=== PATIENT | female | born 1940 | race Two or more races ===

== ENCOUNTER 2021-09-13 11:39 | Emergency (ER) | payer MEDICARE ==
[~2021-09-13] VITALS: Ht 152.4 cm; Wt 90.7 kg
--- NOTE | 2021-09-13 11:54 | NUR ---
BIBA RA60 FOR BACK/SHOULDER PAIN AND L ARM WEAKNESS S/P CORTISONE INJECTION 4 DAYS AGO. PER EMS, O2 SAT 86% ON RA, GIVEN 4L NOW 96-97%.
--- NOTE | 2021-09-13 12:02 | NUR ---
PT REFUSING ALL TREATMENT. REFSUES VITALS, OXYGEN. STATES WANTS TO GO TO [facility]. ANGEL WESTON CALLED [phone] AND NOTIFIED.
--- NOTE | 2021-09-13 12:13 | NUR ---
PT STATES SHE WISHES TO BE TREATED HERE NOW. PLACED ON NC 5L POX 98%. HEAD OF BED ADJUSTED FOR COMFORT. WILL CONTINUE TO MONITOR.
[2021-09-13] MEDS ORDERED: ONDANSETRON HCL/PF 4 MG/2 ML VIAL IVP ONE (12:30)
[2021-09-13] MEDS ORDERED: MORPHINE SULFATE INJ 2 MG/ML DISP.SYRIN IV ONE (12:30)
--- NOTE | 2021-09-13 12:49 | NUR ---
ANGEL WESTON IN WAITING ROOM [phone]
--- NOTE | 2021-09-13 12:50 | NUR ---
PER SON, DO NOT TAKE PT TO CT IMAGING. X RAY IS OK.
[2021-09-13 12:59] LABS: BASOPHILS # (AUTO) 0.1 K/uL (0.0-0.2); BASOPHILS % (AUTO) 0.6 % (0.0-2.0); HEMATOCRIT 37 % (33-45); HEMOGLOBIN 11.6 g/dL (11.5-14.8); LYMPHOCYTES # (AUTO) 0.6 K/uL (0.8-4.8); LYMPHOCYTES % (AUTO) 6.1 % (20.0-44.0); MEAN CORPUSCULAR HGB CONC 31 g/dl (31.0-36.0); MEAN CORPUSCULAR VOLUME 80 fL (82-100); MONOCYTES # (AUTO) 0.8 K/uL (0.1-1.30); MONOCYTES % (AUTO) 8.5 % (2.0-12.0); NEUTROPHILS # (AUTO) 7.6 K/uL (1.8-8.9); NEUTROPHILS % (AUTO) 80.8 % (43.0-81.0); PLATELET COUNT (AUTO) 333 K/uL (150-450); RED BLOOD CELL COUNT(AUTO) 4.65 MIL/uL (4.0-5.2); WHITE BLOOD COUNT (AUTO) 9.4 K/uL (4.3-11.0)
[2021-09-13 13:59] LABS: CARBON DIOXIDE 30 mmol/L (21-32); CHLORIDE 105 mmol/L (98-107); CREATININE 1.9 mg/dL (0.6-1.3); GLUCOSE 175 mg/dL (74-106); POTASSIUM 4.5 mmol/L (3.5-5.1); SODIUM SERUM 143 mmol/L (136-145); UREA NITROGEN, BLOOD 28 mg/dL (7-18)
--- NOTE | 2021-09-13 14:36 | NUR ---
ASSISTED PT WITH AMBULATING TO RESTROOM AND RETURNING TO BED. VS REMAINED STABLE. COMFORT MEASURES IN PLACE.
--- NOTE | 2021-09-13 14:39 | NUR ---
URINE SAMPLE OBTAINED AND SENT TO LAB
[2021-09-13 15:26] LABS: BILIRUBIN,URINE NEGATIVE (NEGATIVE); COLOR,URINE YELLOW (YELLOW); LEUKOCYTE ESTERASE ,URINE TRACE (NEGATIVE); NITRITE, URINE NEGATIVE (NEGATIVE); PROTEIN,URINE 30 mg/dl (NEGATIVE); UGLUCOSE NEGATIVE (NEGATIVE); UROBILINOGEN,URINE 0.2 EU/dL (0.2)
[2021-09-13] MEDS ORDERED: AMOX-430 PO (16:00)
[2021-09-13 16:01] LABS: BACTERIA,URINE Few /HPF (None Seen); RBC,URINE 0-2 /HPF (0-2); SQUAMOUS EPITHELIAL CELL,UR Moderate /HPF (None Seen); WBC,URINE 20-30 /HPF (0-3); YEAST,URINE Few /HPF (None Seen)
--- NOTE | 2021-09-13 16:21 | NUR ---
Patient does not wish to proceed with medical care recommended by Dr. Berger. Patient given information related to possible complications, up to and including , which could occur as a result of leaving the hospital at this time. Patient verbalizes understanding of risks involved due to leaving against medical advice. Patient has signed AMA form.
--- NOTE | 2021-09-13 16:22 | NUR ---
PT SON ENRICO CALLED TO PICK PT UP.
--- NOTE | 2021-09-13 17:47 | NUR ---
PT SON HERE TO SPORTS COMPLEX ATTENDANT PT
[2021-09-13 17:48] VITALS: BP 138/84
== END 2021-09-13 17:49 | disposition left against medical advice (07) ==
LOC: ER 11:43
DX: J18.8 Other pneumonia, unspecified organism (principal); I10 Essential (primary) hypertension; F32.9 Major depressive disorder, single episode, unspecified; F41.9 Anxiety disorder, unspecified; Z88.6 Allergy status to analgesic agent; Z88.8 Allergy status to other drugs, medicaments and biological substances; Z79.899 Other long term (current) drug therapy
CPT/HCPCS: 36415; 71045-TC; 73030-TC; 80048-TC; 81001; 84484-TC; 85025-TC

== ENCOUNTER 2022-04-19 20:49 | Inpatient (IN) | payer MEDICARE, OTHER ==
[~2022-04-19] VITALS: Ht 152.4 cm; Wt 79.4 kg
[2022-04-19] MEDS: METOPROLOL SUCCINATE 50 MG TAB.SR.24H PO SCH (00:38)
[2022-04-19] MEDS: ASPIRIN 81 MG TAB.CHEW PO SCH (00:43)
[~2022-04-19 20:49] MED LIST: AMOX-430 PO
--- NOTE | 2022-04-19 20:55 | NUR ---
BIBRA60 FROM [facility] C/O AMS NOTED AROUND 4PM, UPON TRIAGE RA 02 NOTED AT 83%. PATIENT IN GOWN IN BED 08 ON MONITOR AND POX, AWAITING MD GERMAN.
--- NOTE | 2022-04-19 20:58 | NUR ---
BLOOD COLLECTED AND SENT TO LAB
--- NOTE | 2022-04-19 21:01 | NUR ---
PT GOING TO [facility]
[2022-04-19] MEDS ORDERED: IOHEXOL-350 100 ML VIAL IV ONE (21:03)
[2022-04-19] MEDS ORDERED: IV NS 0.9% 250 ML IV ONE (21:03)
--- NOTE | 2022-04-19 21:13 | NUR ---
BACK FROM CT
[2022-04-19 21:18] LABS: BASOPHILS % (AUTO) 0.2 % (0.0-2.0); HEMATOCRIT 44 % (33-45); HEMOGLOBIN 12.3 g/dL (11.5-14.8); LYMPHOCYTES # (AUTO) 0.6 K/uL (0.8-4.8); MEAN CORPUSCULAR HGB CONC 28 g/dl (31.0-36.0); MEAN CORPUSCULAR VOLUME 98 fL (82-100); MONOCYTES # (AUTO) 0.1 K/uL (0.1-1.30); MONOCYTES % (AUTO) 3.5 % (2.0-12.0); NEUTROPHILS # (AUTO) 1.5 K/uL (1.8-8.9); NEUTROPHILS % (AUTO) 69.3 % (43.0-81.0); PLATELET COUNT (AUTO) 116 K/uL (150-450); RED BLOOD CELL COUNT(AUTO) 4.47 MIL/uL (4.0-5.2); WHITE BLOOD COUNT (AUTO) 2.2 K/uL (4.3-11.0)
--- NOTE | 2022-04-19 21:18 | NUR ---
BS 281
--- NOTE | 2022-04-19 21:18 | NUR ---
COVID SWAB COLLECTED
--- NOTE | 2022-04-19 21:23 | NUR ---
NEUROLOGIST DR. KYLE ON THE TELEPAD WITH PATIENT FOR EVALUATION.
--- NOTE | 2022-04-19 21:36 | NUR ---
urine collected and sent to lab
--- NOTE | 2022-04-19 21:40 | NUR ---
DR MAXWELL ON THE PHONE WITH DR AREVALO, NEURO
[2022-04-19 21:41] LABS: CALCIUM, SERUM 8.9 mg/dL (8.5-10.1); CARBON DIOXIDE 33 mmol/L (21-32); CHLORIDE 109 mmol/L (98-107); CREATININE 2.2 mg/dL (0.6-1.3); GLUCOSE 333 mg/dL (74-106); POTASSIUM 4.6 mmol/L (3.5-5.1); SODIUM SERUM 147 mmol/L (136-145); UREA NITROGEN, BLOOD 36 mg/dL (7-18)
--- NOTE | 2022-04-19 21:52 | NUR ---
TROPONIN 63
[2022-04-19] MEDS ORDERED: MAG HYDROX/AL HYDROX/SIMETH 30 ML UDC PO PRN (23:00)
[2022-04-19] MEDS ORDERED: FUROSEMIDE 40 MG/4 ML VIAL IV ONE (23:00)
[2022-04-19] MEDS ORDERED: ACETAMINOPHEN 325 MG TABLET PO PRN (23:00)
[2022-04-19] MEDS ORDERED: ZOLPIDEM TARTRATE 5 MG TABLET PO PRN (23:00)
[2022-04-19] MEDS ORDERED: MAGNESIUM HYDROXIDE 30 ML UDC PO PRN (23:00)
[2022-04-19] MEDS ORDERED: Z GUARD REMEDY 4 OZ OINT TP PRN (23:00)
--- NOTE | 2022-04-19 23:47 | NUR ---
16FR CHAIREZ CATHETER INSERTED PER MD SALAS ORDERS. PT TOLERATED WELL.
[2022-04-19 23:48] LABS: COLOR,URINE YELLOW (YELLOW); PH,URINE 8.5 (5.0-8.0)
[2022-04-19 23:49] LABS: BILIRUBIN,URINE NEGATIVE (NEGATIVE); LEUKOCYTE ESTERASE ,URINE LARGE (NEGATIVE); NITRITE, URINE NEGATIVE (NEGATIVE); PROTEIN,URINE 2+ mg/dl (NEGATIVE); UGLUCOSE NEGATIVE (NEGATIVE); UROBILINOGEN,URINE 0.2 EU/dL (0.2)
[2022-04-19 23:54] LABS: BACTERIA,URINE Many /HPF (None Seen); RBC,URINE TOO NUMEROUS TO COUN /HPF (0-2); SQUAMOUS EPITHELIAL CELL,UR Few /HPF (None Seen); WBC,URINE TOO NUMEROUS TO COUN /HPF (0-3)
[2022-04-20 00:02] LABS: BAND % (MANUAL) 2 % (0.0-5.0); MONOCYTES % (MANUAL) 4 % (0-11.0)
[2022-04-20 00:03] LABS: EOSINOPHILS % (MANUAL) 1 % (0-4); LYMPHOCYTES % (MANUAL) 30 % (16-48); NEUTROPHILS % (MANUAL) 63 (42-76)
--- NOTE | 2022-04-20 00:30 | NUR ---
PT SLEEPING COMOFORTABLY. ORIENTED X1N TO NAME, FOLLOWS BASIC COMMANDS AND MOVES PURPOSELY. V/S REMAIN WNL.
[2022-04-20] MEDS ORDERED: CEFTRIAXONE 1GM BAG (ER ONLY) 50 ML IV ONE (00:32)
[2022-04-20] MEDS ORDERED: FUROSEMIDE 40 MG/4 ML VIAL ONE (00:33)
[2022-04-20] MEDS: CEFTRIAXONE 1 G in IV D5W 50 ML IV SCH ×2 (00:38→21:11)
[2022-04-20] MEDS ORDERED: ASPIRIN 81 MG TAB.CHEW ONE (00:41)
--- NOTE | 2022-04-20 04:55 | NUR ---
report given to gwyn
[2022-04-20 05:20] LABS: BASOPHILS % (AUTO) 0.3 % (0.0-2.0); EOSINOPHILS % (AUTO) 2.8 % (0.0-6.0); HEMATOCRIT 38 % (33-45); HEMOGLOBIN 11.8 g/dL (11.5-14.8); LYMPHOCYTES # (AUTO) 0.5 K/uL (0.8-4.8); MEAN CORPUSCULAR HGB CONC 31 g/dl (31.0-36.0); MEAN CORPUSCULAR VOLUME 88 fL (82-100); MONOCYTES % (AUTO) 2.9 % (2.0-12.0); PLATELET COUNT (AUTO) 111 K/uL (150-450)
--- NOTE | 2022-04-20 05:23 | NUR ---
pt transported to room 117-1 on hand mixer per acls in stable condition
--- NOTE | 2022-04-20 05:25 | NUR ---
0525 Admitted from ER 81 year old female via [facility] with Dx of Acute CHF Exacerbation. Patient is very obtunded, responds only to painful stimuli. Breathing even and unlabored. No signs of distress noted. On O2 at 4liter via NC satting 95-97%. Connected to environmental monitoring technician. NSR in the 90s. Vital signs taken and recorded. Admission care rendered and skin assessment done. Noted with multiple bruising on bilateral upper extremities. Mcintyre catheter intact and large amount of clear yellow urine. Complete bed bath provided. HOB elevated for maximum oxygenation. Turned and repositioned. Call light placed within reach..
[2022-04-20 05:29] LABS: WHITE BLOOD COUNT (AUTO) 1.6 K/uL (4.3-11.0)
--- NOTE | 2022-04-20 05:30 | NUR ---
RN NOTE RECEIVED CRITICAL FROM LAB WBC 1.6
[2022-04-20 05:31] LABS: BAND % (MANUAL) 2 % (0.0-5.0); LYMPHOCYTES % (MANUAL) 32 % (16-48)
[2022-04-20 05:32] LABS: EOSINOPHILS % (MANUAL) 3 % (0-4); MONOCYTES % (MANUAL) 3 % (0-11.0); NEUTROPHILS % (MANUAL) 60 (42-76)
[2022-04-20 05:36] LABS: CALCIUM, SERUM 8.9 mg/dL (8.5-10.1); CARBON DIOXIDE 37 mmol/L (21-32); CHLORIDE 108 mmol/L (98-107); CREATININE 2.2 mg/dL (0.6-1.3); GLUCOSE 248 mg/dL (74-106); MAGNESIUM 2.4 mg/dL (1.8-2.4); PHOSPHORUS 4.6 mg/dL (2.5-4.9); POTASSIUM 3.6 mmol/L (3.5-5.1); SODIUM SERUM 150 mmol/L (136-145); UREA NITROGEN, BLOOD 35 mg/dL (7-18)
--- NOTE | 2022-04-20 05:45 | NUR ---
0545 Critical troponin result 51 not reported, trending down.
[2022-04-20 05:49] LABS: CHOLESTEROL 159 mg/dL (<200); HDL CHOLESTEROL 52 mg/dL (40-60); LDL 74 mg/dL (0-99); THYROID STIMULATING HORMONE 1.848 uIU/mL (0.358-3.74); TRIGLYCERIDES 251 mg/dL (30-150)
--- NOTE | 2022-04-20 05:55 | NUR ---
0555 SERGIO Gutiérrez made aware of critical troponin 51 and procalcitonin 2.79 results with no order made.
[2022-04-20] MEDS ORDERED: DEXTROSE 50%-WATER 50 ML DISP.SYRIN IV PRN (06:00)
--- NOTE | 2022-04-20 07:42 | NUR ---
VERONICA RN NOTE PATIENT IN BED, SLEEPING BUT AROUSABLE BY TACTILE STIMULI, ON 5L NC SATURATION 95% AT THIS TIME, ON TELE MONITOR SR HR 99, RT AC LT AC HL IN PLACE , BED IN LOWEST AND LOCKED POSITION , NO SOB NOTED AT THIS TIME, SAFETY MEASURE PROVIDED, BED ALARM IN PLACE, WILL CONT TO MONITOR CLOSELY
[2022-04-20] MEDS ORDERED: PARO10TA4 PO (08:34)
[2022-04-20] MEDS ORDERED: METO-357 PO (08:34)
[2022-04-20] MEDS ORDERED: LATA2.5D15 EACHEYE (08:34)
[2022-04-20] MEDS ORDERED: TRAM50TA2 PO (08:34)
[2022-04-20] MEDS ORDERED: BRIM5DRO11 EACHEYE (08:34)
[2022-04-20] MEDS ORDERED: ALPR0.5T8 PO (08:34)
[2022-04-20] MEDS ORDERED: PREG50CA PO (08:34)
[2022-04-20] MEDS ORDERED: ERGO500093 PO (08:34)
[2022-04-20] MEDS ORDERED: SENN-175 PO (08:34)
[2022-04-20] MEDS ORDERED: AMLO5TAB4 PO (08:34)
[2022-04-20] MEDS ORDERED: PRED20TA PO (08:34)
[2022-04-20] MEDS ORDERED: PANT40TA2 PO (08:34)
[2022-04-20] MEDS: PANTOPRAZOLE 40 MG VIAL IV SCH (08:58)
[2022-04-20] MEDS: METOPROLOL SUCCINATE 50 MG TAB.SR.24H PO SCH (08:59)
[2022-04-20] MEDS: ASPIRIN 81 MG TAB.CHEW PO SCH (08:59)
[2022-04-20] MEDS: HEPARIN SODIUM, PORCINE 5000 UNITS/1 ML VIAL SQ SCH ×2 (08:59→21:13)
[2022-04-20] MEDS ORDERED: FUROSEMIDE 20 MG/2 ML VIAL IV SCH (09:00)
[2022-04-20] MEDS: BLOOD SUGAR DIAGNOSTIC 1 EACH STRIP VI SCH ×4 (09:08→21:38)
[2022-04-20 10:00] VITALS: BP 126/57
--- NOTE | 2022-04-20 10:30 | NUR ---
VERONICA RN NOTE PT AT BEDSIDE STILL UNABLE TO SIT AT EDGE OF BED ,WILL F\U TOMORROW WITH PT
--- NOTE | 2022-04-20 11:00 | NUR ---
bianka rn note dr doan at bedside abg ordered and rt at bedside test done ,will f\u
[2022-04-20 11:16] LABS: ABG OXYGEN SATURATION 96.2 % (92.0-98.5); ABG PCO2 51.2 mmHg (35.0-45.0); ABG PH 7.386 (7.350-7.450); ABG PO2 87.7 mmHg (75.0-100.0); AaDO2 138.6 mmHg; COHb 0.9 % (0.5-1.5); MetHb 0.2 % (0.0-1.5); O2Hb 95.1 % (94.0-97.0); SITE, ABG Right Radial; VENT MODE, BG 5 LPM NC
--- NOTE | 2022-04-20 11:20 | NUR ---
bianka rn note mrsa swab collected as ordered
--- NOTE | 2022-04-20 13:13 | NUR ---
VERONICA CHAPARRO NOTE ABG RESULT REPORTED BY MINOO REYNOSO TO CHANGE O2 TO 3L NC, SATIATION 91 %, WILL MONITOR Addendum: 04/20/22 at 1315 by PROMISE PEMBERTON RN ELLIS LEWIS ORDERED
[2022-04-20 13:53] LABS: CREATININE, URINE 34.5 MG/DL (30.0-125.0)
--- NOTE | 2022-04-20 14:14 | NUR ---
telegraph mechanic note pewr dr bass ok to hold Lasix aware bun and creat result
[2022-04-20 16:00] VITALS: BP 108/57
--- NOTE | 2022-04-20 16:13 | NUR ---
VERONICA RN NOTE DR DAVID BARR AT BEDSIDE ,SEEN PATIENT, UPDATED PATENT CONATION , PHONE NUMBER OF DAUGHTER GIVEN, STATED THAT WILL CALL HER
--- NOTE | 2022-04-20 17:03 | NUR ---
bianka rn note called to dr mike ordered d5w at 75 ml per hour , reported na 150 today
[2022-04-20] MEDS: IV D5W 1,000 ML IV SCH (17:20)
[2022-04-20] MEDS: INSULIN REGULAR, HUMAN 100 UNIT/ML 3 ML VIAL SQ PRN (17:42)
--- NOTE | 2022-04-20 18:22 | NUR ---
VERONICA RN NOTE FAMILY AT BEDSIDE , ALL NEEDS ATTENDED WITH 3L OF O2, NO SOB NOTED AT THIS TIME, WITH CHAIREZ CATH TO GRAVITY WITH YELLOW COLOR URINE, FAMILY AT BEDSIDE KEEP CLEAN DRY , ALL NEEDS ATTENDED MORE AWAKE ,BOTH EYES OPEN, WILL CONT TO MONITOR
--- NOTE | 2022-04-20 19:30 | NUR ---
RN NOTE PATIENT IN BED, SON AT BEDSIDE, AO X 2-3, ROMANSH SPEAKING ONLY, BREATHING EVEN AND UNLABORED, SATURATION AT 95% ON 3L VIA NC, SR ON THE MONITOR, HR IS 77. IV LINE AT RAC AND LAC PATENT AND FLUSHING WELL, D5W INFUSING AT 75 ML/HR. CHAIREZ CATHETER DRAINING TO A CLEAR, YELLOW OUTPUT. SAFETY MEASURES IMPLEMENTED, BED IS LOCKED AND AT LOWEST POSITION, HOB ELEVATED, SIDE RAILS UP X 2, CALL LIGHT WITHIN REACH OF PATIENT. WILL CONTINUE TO MONITOR AND REASSESS.
[2022-04-20 20:00] VITALS: BP 117/55
[2022-04-20] MEDS: ONDANSETRON HCL/PF 4 MG/2 ML VIAL IVP PRN (21:19)
[2022-04-20] MEDS: *INSULIN REGULAR(HUMULIN R)HUM 100 UNIT/ML VIAL SQ PRN (21:30)
[2022-04-21] VITALS: BP 117/52
[2022-04-21 04:00] VITALS: BP 127/59
[2022-04-21] MEDS: IV D5W 1,000 ML IV SCH ×2 (06:52→21:20)
[2022-04-21 07:16] LABS: BASOPHILS % (AUTO) 0.5 % (0.0-2.0); EOSINOPHILS % (AUTO) 4.1 % (0.0-6.0); HEMATOCRIT 37 % (33-45); HEMOGLOBIN 11.3 g/dL (11.5-14.8); LYMPHOCYTES # (AUTO) 0.5 K/uL (0.8-4.8); LYMPHOCYTES % (AUTO) 31.3 % (20.0-44.0); MEAN CORPUSCULAR HGB CONC 31 g/dl (31.0-36.0); MEAN CORPUSCULAR VOLUME 88 fL (82-100); MONOCYTES # (AUTO) 0.1 K/uL (0.1-1.30); MONOCYTES % (AUTO) 3.8 % (2.0-12.0); NEUTROPHILS # (AUTO) 0.9 K/uL (1.8-8.9); NEUTROPHILS % (AUTO) 60.3 % (43.0-81.0); PLATELET COUNT (AUTO) 97 K/uL (150-450); RED BLOOD CELL COUNT(AUTO) 4.17 MIL/uL (4.0-5.2)
[2022-04-21] MEDS: ONDANSETRON HCL/PF 4 MG/2 ML VIAL IVP PRN (07:18)
--- NOTE | 2022-04-21 07:30 | NUR ---
VERONICA RN opening NOTE received patient in bed. easily arousable to name.patient is alert and oriented x1. patient has periods of confusion. patient is on 5l nasal cannula saturating at 95%.patient is on tele monitor currently at sinus rhythm/sinus tachycardia. patient has left ac. iv intact and flushing well. patient has Mcintyre catheter.yellow color draining to gravity. bed locked at lowest position. side rails up x2.
--- NOTE | 2022-04-21 07:41 | NUR ---
RN NOTE TELEPHONE CALL TO PT'S SON ENRICO KOHLER AT [phone] TO VERIFY PT'S CODE STATUS, STATED PT IS FULL CODE.
[2022-04-21 07:51] LABS: CALCIUM, SERUM 8.9 mg/dL (8.5-10.1); CARBON DIOXIDE 34 mmol/L (21-32); CHLORIDE 106 mmol/L (98-107); CREATININE 1.8 mg/dL (0.6-1.3); GLUCOSE 178 mg/dL (74-106); MAGNESIUM 2.1 mg/dL (1.8-2.4); PHOSPHORUS 3.6 mg/dL (2.5-4.9); POTASSIUM 2.9 mmol/L (3.5-5.1); SODIUM SERUM 146 mmol/L (136-145); UREA NITROGEN, BLOOD 27 mg/dL (7-18); WHITE BLOOD COUNT (AUTO) 1.5 K/uL (4.3-11.0)
[2022-04-21 08:00] VITALS: BP 128/63
--- NOTE | 2022-04-21 08:00 | NUR ---
received critical lab wbc 1.[address] chandler
[2022-04-21] MEDS: BLOOD SUGAR DIAGNOSTIC 1 EACH STRIP VI SCH ×4 (08:02→21:49)
[2022-04-21] MEDS: INSULIN REGULAR, HUMAN 100 UNIT/ML 3 ML VIAL SQ PRN ×3 (08:04→17:28)
[2022-04-21] MEDS ORDERED: POTASSIUM CHLORIDE 20 MEQ TAB.PRT.SR PO SCH (09:00)
[2022-04-21] MEDS: PANTOPRAZOLE 40 MG VIAL IV SCH (09:03)
[2022-04-21] MEDS ORDERED: POTASSIUM CL. PREMIX PERIPHER. 50 ML IV SCH (10:00)
--- NOTE | 2022-04-21 10:00 | NUR ---
speech therapist saw patient and recommended pureed diet
[2022-04-21] MEDS: ASPIRIN 81 MG TAB.CHEW PO SCH (10:01)
[2022-04-21] MEDS: METOPROLOL SUCCINATE 50 MG TAB.SR.24H PO SCH (10:02)
--- NOTE | 2022-04-21 11:00 | NUR ---
bianka rn note spoke with to order eye drops.patient complaining of eye dryness eye pain. notified dr. howell if heparin can be discontinued due to low platelet trend. said to discontinue heparin. dr. chandler ordered eye drops
[2022-04-21] MEDS: POTASSIUM CHLORIDE 20 MEQ POWDER PACKET PO SCH ×2 (11:30→12:34)
[2022-04-21 12:00] VITALS: BP 105/53
[2022-04-21] MEDS ORDERED: FILGRASTIM (480 MCG) 480 MCG/1.6 ML VIAL SQ SCH (12:00)
[2022-04-21] MEDS: BRIMONIDINE TARTRATE OPHT SOLN 5 ML BOTTLE EACHEYE SCH ×2 (12:35→16:41)
[2022-04-21] MEDS ORDERED: TBO-FILGRASTIM 480 MCG/0.8 ML ML SQ SCH (13:00)
--- NOTE | 2022-04-21 13:10 | NUR ---
television presenter note spoke with pharmacy if it was okay to adminster granix.pharmacist said it was okay to adminster granix due to very low wbc count.
--- NOTE | 2022-04-21 13:30 | NUR ---
spoke with if 1700 protonix can be held due to protonix IV given earlier in the day
[2022-04-21 13:49] LABS: BAND % (MANUAL) 3 % (0.0-5.0); EOSINOPHILS % (MANUAL) 2 % (0-4); LYMPHOCYTES % (MANUAL) 31 % (16-48); MONOCYTES % (MANUAL) 5 % (0-11.0); NEUTROPHILS % (MANUAL) 59 (42-76)
--- NOTE | 2022-04-21 14:00 | NUR ---
said ok to hold protonix 1700 due to it being given earlier in the day
[2022-04-21 16:00] VITALS: BP 124/61
[2022-04-21] MEDS: PANTOPRAZOLE 40 MG TABLET.DR PO SCH (16:20)
[2022-04-21] MEDS: PREGABALIN 25 MG CAPSULE PO SCH (16:40)
--- NOTE | 2022-04-21 17:00 | NUR ---
provided son with updates on patient condition. notified son that administered subcutaneous injection due to low wbc count. patient aware of subcutaneous injections given earlier. provided education on medications given. patient son said it was ok to give at this time.
--- NOTE | 2022-04-21 17:10 | NUR ---
son asked to consult with their own oncologist and md before administering any subcutaneous injections going forth
--- NOTE | 2022-04-21 19:30 | NUR ---
RN NOTE PATIENT IN BED, SON AT BEDSIDE, AO X 2-3, HEBREW SPEAKING ONLY, BREATHING EVEN AND UNLABORED, SATURATION AT 99% ON 3L VIA NC, SR ON THE MONITOR, HR IS 94. IV LINE AT RFA 20G AND LAC 18G PATENT AND FLUSHING WELL, D5W INFUSING AT 75 ML/HR. CHAIREZ CATHETER DRAINING TO A CLEAR, YELLOW OUTPUT. SAFETY MEASURES IMPLEMENTED, BED IS LOCKED AND AT LOWEST POSITION, HOB ELEVATED, SIDE RAILS UP X 2, CALL LIGHT WITHIN REACH OF PATIENT. WILL CONTINUE TO MONITOR AND REASSESS.
[2022-04-21 20:00] VITALS: BP 91/51
--- NOTE | 2022-04-21 20:31 | NUR ---
VERONICA RN NOTE PATIENT IS ALERT AND ORIENTED X1.PATIENT HAS PERIODS OF CONFUSION. PATIENT IS ON 3 L NASAL CANNULA TOLERATING AT 96%. PATIENT COMPLAINS OF NO SOB/PAIN/DISCOMOFRT. PATIENT HAS IV SITE ON RIGHT UPPER ARM AND ON LEFT ARM. IV PATENT AND FLUSHING WELL. FAMILY IS AT BEDSIDE. ALL NEEDS ATTENDED. PATIENT HAS CHAIREZ CATH TO GRAVITY. YELLOW COLOR OUTPUT. KEPT CLEAN AND DRY. ALL SAFETY MEASURES IN PLACE. CALL LIGHT WITH REACH. BED LOCKED AT LOWEST POSITION. SIDE RAILS UP X2.
--- NOTE | 2022-04-21 21:16 | NUR ---
RT NOTE Attempted to place patient on noc bipap as ordered. Pt states they could not tolerate ordered bipap settings. Attempted 15/5 and pt still could not tolerate. Pt states it is very uncomfortable. Placed back on 3L NC, and SPO2 is 95%. SHANKAR Diane made aware that pt refuses bipap. Will check on patient throughout the night.
--- NOTE | 2022-04-21 21:20 | NUR ---
RN NOTE PATIENT REFUSED BIPAP PER ANDREIA RT. EXPLAINED AND EDUCATED PATIENT REGARDING IMPORTANCE OF BIPAP USE. PT STILL REFUSED AND SAID SHE CANNOT TOLERATE. WILL INFORM PRIMARY AND PULMO IN AM.
[2022-04-21] MEDS: CEFTRIAXONE 1 G in IV D5W 50 ML IV SCH (21:48)
[2022-04-21] MEDS: LATANOPROST EYE DROP 0.005% 2.5 ML BOTTLE EACHEYE SCH (21:48)
[2022-04-21] MEDS: SENNOSIDES 8.6 MG TABLET PO SCH (21:48)
[2022-04-21] MEDS: AMLODIPINE BESYLATE 5 MG TABLET PO SCH (22:00)
--- NOTE | 2022-04-21 22:25 | NUR ---
RN NOTE NOTED BP 91/51, REPEATED 92/49. PT HAS SCHEDULED AMLODIPINE 5 MG, MD NOTIFIED, ORDER RECEIVED TO HOLD DOSE.
--- NOTE | 2022-04-21 23:25 | NUR ---
RT NOTE Checked in on pt. Pt awake and refused bipap again. Educated on the benefits. Pt still on 3L NC with an SPO2 of 98%, HR 103.
[2022-04-22] VITALS: BP 92/47
[2022-04-22 04:00] VITALS: BP 116/68
[2022-04-22 07:34] LABS: BASOPHILS % (AUTO) 0.4 % (0.0-2.0); EOSINOPHILS % (AUTO) 1.8 % (0.0-6.0); HEMATOCRIT 36 % (33-45); HEMOGLOBIN 11.1 g/dL (11.5-14.8); LYMPHOCYTES # (AUTO) 0.7 K/uL (0.8-4.8); LYMPHOCYTES % (AUTO) 15.4 % (20.0-44.0); MEAN CORPUSCULAR HGB CONC 31 g/dl (31.0-36.0); MEAN CORPUSCULAR VOLUME 87 fL (82-100); MONOCYTES # (AUTO) 0.1 K/uL (0.1-1.30); MONOCYTES % (AUTO) 3.2 % (2.0-12.0); NEUTROPHILS # (AUTO) 3.4 K/uL (1.8-8.9); NEUTROPHILS % (AUTO) 79.2 % (43.0-81.0); PLATELET COUNT (AUTO) 93 K/uL (150-450); RED BLOOD CELL COUNT(AUTO) 4.09 MIL/uL (4.0-5.2); WHITE BLOOD COUNT (AUTO) 4.3 K/uL (4.3-11.0)
--- NOTE | 2022-04-22 07:36 | NUR ---
RN OPENING NOTE RECEIVED PATIENT IN BED, AO X 2-3, TAMAZIGHT SPEAKING ONLY, BREATHING EVEN AND UNLABORED, 2L VIA NC, . IV LINE AT RFA 20G AND LAC 18G PATENT AND FLUSHING WELL, D5W INFUSING AT 75 ML/HR. CHAIREZ CATHETER DRAINING TO A CLEAR, YELLOW OUTPUT. SAFETY MEASURES IMPLEMENTED, BED IS LOCKED AND AT LOWEST POSITION, HOB ELEVATED, SIDE RAILS UP X 2, CALL LIGHT WITHIN REACH OF PATIENT.
[2022-04-22 08:00] VITALS: BP 125/63
[2022-04-22 08:37] LABS: ALANINE AMINOTRANSFERASE 13 U/L (12-78); ALBUMIN 2.3 g/dL (3.4-5.0); ALKALINE PHOSPHATASE 65 U/L (46-116); ASPARTATE AMINOTRANSFERASE 14 U/L (15-37); BILIRUBIN,TOTAL 1.1 mg/dL (0.2-1.0); CALCIUM, SERUM 8.7 mg/dL (8.5-10.1); CARBON DIOXIDE 35 mmol/L (21-32); CHLORIDE 102 mmol/L (98-107); CREATININE 1.7 mg/dL (0.6-1.3); GLUCOSE 164 mg/dL (74-106); MAGNESIUM 1.7 mg/dL (1.8-2.4); POTASSIUM 3.4 mmol/L (3.5-5.1); SODIUM SERUM 142 mmol/L (136-145); TOTAL PROTEIN, SERUM 5.4 g/dL (6.4-8.2); UREA NITROGEN, BLOOD 21 mg/dL (7-18)
[2022-04-22] MEDS: ASPIRIN 81 MG TAB.CHEW PO SCH (08:37)
[2022-04-22] MEDS: PAROXETINE HCL 10 MG TABLET PO SCH (08:38)
[2022-04-22] MEDS: predniSONE 20 MG TABLET PO SCH (08:38)
[2022-04-22] MEDS: METOPROLOL SUCCINATE 50 MG TAB.SR.24H PO SCH (08:38)
[2022-04-22] MEDS: PANTOPRAZOLE 40 MG TABLET.DR PO SCH ×2 (08:38→17:34)
[2022-04-22] MEDS: PREGABALIN 25 MG CAPSULE PO SCH ×2 (08:39→17:34)
[2022-04-22] MEDS: INSULIN REGULAR, HUMAN 100 UNIT/ML 3 ML VIAL SQ PRN ×3 (08:41→17:37)
[2022-04-22] MEDS: BLOOD SUGAR DIAGNOSTIC 1 EACH STRIP VI SCH ×4 (08:42→22:00)
[2022-04-22] MEDS: BRIMONIDINE TARTRATE OPHT SOLN 5 ML BOTTLE EACHEYE SCH ×3 (08:44→17:34)
[2022-04-22] MEDS ORDERED: PANTOPRAZOLE 40 MG/PACK PACK PO SCH (09:00)
[2022-04-22] MEDS: Magnesium 1GM/D5W 100ML PREMIX 100 ML IV SCH ×2 (09:16→12:32)
[2022-04-22] MEDS ORDERED: POTASSIUM PHOSPHATE MM 15 MMOL in IV NS 0.9% 250 ML IV SCH (10:00)
[2022-04-22 10:19] LABS: BAND % (MANUAL) 1 % (0.0-5.0); LYMPHOCYTES % (MANUAL) 15 % (16-48); MONOCYTES % (MANUAL) 3 % (0-11.0); NEUTROPHILS % (MANUAL) 81 (42-76)
[2022-04-22] MEDS: TRAMADOL HCL 50 MG TABLET PO PRN (10:47)
[2022-04-22 12:00] VITALS: BP 115/56
[2022-04-22] MEDS ORDERED: POTASSIUM CL. PREMIX PERIPHER. 50 ML IV SCH ×2 (15:00→18:00)
[2022-04-22] MEDS ORDERED: TBO-FILGRASTIM 480 MCG/0.8 ML ML SQ SCH (15:00)
[2022-04-22 16:00] VITALS: BP 104/65
--- NOTE | 2022-04-22 18:58 | NUR ---
RN CLOSING NOTE PATIENT IS ALERT AND ORIENTED X2. ROMANSH SPEAKING PATIENT HAS PERIODS OF CONFUSION. PATIENT IS ON ROOM AIR. PATIENT COMPLAINS OF NO SOB/PAIN/DISCOMFORT. PATIENT HAS IV ACCESS ON LEFT UPPER ARM MIDLINE ALL NEEDS ATTENDED. PATIENT HAS CHAIREZ CATH TO GRAVITY. YELLOW COLOR OUTPUT. KEPT CLEAN AND DRY. ALL SAFETY MEASURES IN PLACE. CALL LIGHT WITH REACH. BED LOCKED AT LOWEST POSITION. SIDE RAILS UP X2. WILL ENDORSE TO NIGHT NURSE FOR PERLA.
--- NOTE | 2022-04-22 19:30 | NUR ---
RN NOTE PATIENT IN BED, SON AT BEDSIDE, AO X 2, KITTITIAN SPEAKING ONLY, BREATHING EVEN AND UNLABORED, SATURATION AT 95% ON 4L VIA NC, SR ON THE MONITOR, HR IS 83. IV LINE AT RFA 20G AND PAN MIDLINE 18G PATENT AND FLUSHING WELL, SALINE LOCKED. CHAIREZ CATHETER DRAINING TO A CLEAR, YELLOW OUTPUT. SAFETY MEASURES IMPLEMENTED, BED IS LOCKED AND AT LOWEST POSITION, HOB ELEVATED, SIDE RAILS UP X 2, CALL LIGHT WITHIN REACH OF PATIENT. WILL CONTINUE TO MONITOR AND REASSESS.
[2022-04-22 20:00] VITALS: BP 138/81
[2022-04-22] MEDS: CEFTRIAXONE 1 G in IV D5W 50 ML IV SCH (21:42)
[2022-04-22] MEDS: SENNOSIDES 8.6 MG TABLET PO SCH (21:42)
[2022-04-22] MEDS: LATANOPROST EYE DROP 0.005% 2.5 ML BOTTLE EACHEYE SCH (21:43)
[2022-04-22] MEDS: AMLODIPINE BESYLATE 5 MG TABLET PO SCH (21:43)
[2022-04-23] VITALS: BP 136/67
[2022-04-23] MEDS: TRAMADOL HCL 50 MG TABLET PO PRN (01:17)
[2022-04-23 04:00] VITALS: BP 130/83
--- NOTE | 2022-04-23 04:31 | NUR ---
Patient placed on BiPAP @2250, per MD order. Patient was tolerating BiPAP well at this time. Patient requested to be taken off BiPAP at 0045 and placed back on 4L nasal cannula, SpO2 97% HR 80 RR 18. No respiratory distress noted.
[2022-04-23 07:17] LABS: BASOPHILS % (AUTO) 0.4 % (0.0-2.0); HEMATOCRIT 34 % (33-45); HEMOGLOBIN 10.9 g/dL (11.5-14.8); LYMPHOCYTES # (AUTO) 0.7 K/uL (0.8-4.8); LYMPHOCYTES % (AUTO) 12.2 % (20.0-44.0); MEAN CORPUSCULAR HGB CONC 32 g/dl (31.0-36.0); MEAN CORPUSCULAR VOLUME 86 fL (82-100); MONOCYTES # (AUTO) 0.2 K/uL (0.1-1.30); MONOCYTES % (AUTO) 3.4 % (2.0-12.0); NEUTROPHILS # (AUTO) 4.7 K/uL (1.8-8.9); PLATELET COUNT (AUTO) 128 K/uL (150-450); RED BLOOD CELL COUNT(AUTO) 3.94 MIL/uL (4.0-5.2); WHITE BLOOD COUNT (AUTO) 5.7 K/uL (4.3-11.0)
--- NOTE | 2022-04-23 07:33 | NUR ---
HEDIS COORDINATOR OPENING NOTES: RECEIVED UZBEK SPEAKING PATIENT IN BED, AWAKE, ALERT, ORIENTED TO NAME AND PLACE PER UZBEK SPEAKING [facility]. ON OXYGEN @ 2L/MIN VIA N/C WITH OXYGEN SATURATION OF 97%. NO SOB NOTED, BREATHING EVEN AND UNLABORED. ON SR WITH HR OF 84 ACCORDING TO TELE MONITOR. IV ACCESS ON LEFT UPPER ARM MIDLINE INTACT, PATENT AND FLUSHES WELL. NO S/S INFILTRATION NOTED. F/C INTACT, DRAINING WITH DARK YELLOW COLORED URINE, NO HEMATURIA AND NO SEDIMENTATION NOTED. BED LOCKED AND IN LOWEST POSITION. CALL LIGHT WITHIN REACH. ALL SAFETY MEASURES IMPLEMENTED. WILL CONTINUE TO MONITOR PATIENT THROUGHOUT SHIFT.
[2022-04-23 07:47] LABS: CALCIUM, SERUM 8.9 mg/dL (8.5-10.1); CARBON DIOXIDE 34 mmol/L (21-32); CHLORIDE 105 mmol/L (98-107); CREATININE 1.7 mg/dL (0.6-1.3); GLUCOSE 83 mg/dL (74-106); MAGNESIUM 2.6 mg/dL (1.8-2.4); PHOSPHORUS 4.2 mg/dL (2.5-4.9); POTASSIUM 3.8 mmol/L (3.5-5.1); SODIUM SERUM 144 mmol/L (136-145); UREA NITROGEN, BLOOD 19 mg/dL (7-18)
[2022-04-23 08:00] VITALS: BP 111/47
[2022-04-23] MEDS: BLOOD SUGAR DIAGNOSTIC 1 EACH STRIP VI SCH ×4 (08:49→22:09)
[2022-04-23] MEDS: BRIMONIDINE TARTRATE OPHT SOLN 5 ML BOTTLE EACHEYE SCH ×3 (08:54→16:04)
[2022-04-23] MEDS: predniSONE 20 MG TABLET PO SCH (08:55)
[2022-04-23] MEDS: PANTOPRAZOLE 40 MG TABLET.DR PO SCH ×2 (08:55→16:08)
[2022-04-23] MEDS: PREGABALIN 25 MG CAPSULE PO SCH ×2 (08:55→16:09)
[2022-04-23] MEDS: PAROXETINE HCL 10 MG TABLET PO SCH (08:55)
[2022-04-23] MEDS: ASPIRIN 81 MG TAB.CHEW PO SCH (08:55)
[2022-04-23] MEDS: METOPROLOL SUCCINATE 50 MG TAB.SR.24H PO SCH (08:56)
[2022-04-23 12:00] VITALS: BP 116/65
[2022-04-23] MEDS: INSULIN REGULAR, HUMAN 100 UNIT/ML 3 ML VIAL SQ PRN ×2 (12:05→17:24)
--- NOTE | 2022-04-23 15:10 | NUR ---
PATIENT ACCIDENTALLY PULLED OUT HER MIDLINE ON LEFT UPPER ARM, IV RESTARTED ON LEFT 4TH (RING) FINGER # 22, PATENT, FLUSHES WELL.
[2022-04-23 16:00] VITALS: BP 116/65
--- NOTE | 2022-04-23 19:08 | NUR ---
TELE CLOSING NOTES: PATIENT IN BED, AWAKE, ALERT, ORIENTED X 1-2. ON OXYGEN @ 2L/MIN VIA N/C WITH OXYGEN SATURATION OF 96%. NO SOB NOTED, BREATHING EVEN AND UNLABORED. ON SR WITH HR OF 97 PER TELE MONITOR. IV ACCESS ON LEFT 4TH FINGER INTACT, FLUSHES WELL, NO S/S INFILTRATION NOTED. F/C INTACT, EMPTIED 165 ML OF DARK YELLOW COLORED URINE, NO HEMATURIA AND NO SEDIMENTATION NOTED. DR MONTOYA NOTIFIED WITH NO FURTHER ORDERS AT THIS TIME. BED LOCKED AND IN LOWEST POSITION. CALL LIGHT WITHIN REACH. WILL ENDORSE TO NEXT SHIFT NURSE FOR CONTINUITY OF CARE.
[2022-04-23 20:00] VITALS: BP 115/61
[2022-04-23] MEDS: CEFTRIAXONE 1 G in IV D5W 50 ML IV SCH (21:54)
[2022-04-23] MEDS: SENNOSIDES 8.6 MG TABLET PO SCH (21:55)
[2022-04-23] MEDS: AMLODIPINE BESYLATE 5 MG TABLET PO SCH (21:56)
[2022-04-23] MEDS: LATANOPROST EYE DROP 0.005% 2.5 ML BOTTLE EACHEYE SCH (21:58)
[2022-04-23] MEDS: *INSULIN REGULAR(HUMULIN R)HUM 100 UNIT/ML VIAL SQ PRN (22:12)
--- NOTE | 2022-04-23 23:06 | NUR ---
PAPERBOARD BOX MAKER OPENING NOTE PT RECEIVED IN BED, AWAKE, GHANAIAN-SPEAKING ONLY, A&O X2; ONLY ABLE TO STATE NAME AND . PT IS ON 3L NC WITH O2SAT OF 97%; NO S/S OF RESP DISTRESS, NO SOB OT COUGH, NON-LABORED AND EQUAL BREATHING. PT ATTACHED TO EXTERNAL MONITOR, SR WITH HR OF 95. CHAIREZ INTACT AND PATENT, NO SIGNS OF LEAKING, DRAINING CLEAR AND YELLOW URINE. PT NOTED TO BE AMBULATORY WITH ASSIST AND IS ABLE TO USE BEDSIDE COMMODE. IV ACCESS ON LEFT 4TH FINGER 22G, INTACT AND PATENT, FLUSHES EASILY WITH NO RESISTANCE; NS TKO AT 5 ML/HR. BED IN LOWEST POSITION, CALL LIGHT WITHIN REACH, SIDE RAILS UP X2. WILL CONTINUE TO MONITOR THROUGHOUT THE NIGHT.
[2022-04-24] VITALS: BP 104/55
[2022-04-24 04:00] VITALS: BP 105/49
--- NOTE | 2022-04-24 07:01 | NUR ---
ASPARAGUS CUTTER CLOSING NOTE PT REMAINS IN BED, AWAKE, OMANI-SPEAKING ONLY, A&O X2; CALM, COOPERATIVE WITH NO SIGNS OF RESTLESSNESS. CONTINUES TO BE ON 3L NC WITH O2SAT RANGING FROM 95% 97%; NO S/S OF RESP DISTRESS, NO SOB OT COUGH, NON-LABORED AND EQUAL BREATHING. PT ATTACHED TO EXTERNAL MONITOR, SR WITH HR RANGING FROM 85- 95. CHAIREZ INTACT AND PATENT, NO SIGNS OF LEAKING, DRAINING CLEAR AND YELLOW URINE. IV ACCESS ON LEFT 4TH FINGER 22G, INTACT AND PATENT, FLUSHES EASILY WITH NO RESISTANCE; NS TKO AT 5 ML/HR. ALL DUE MEDS ADMINISTERED DURING THE NIGHT. BED IN LOWEST POSITION, CALL LIGHT WITHIN REACH, SIDE RAILS UP X2. WILL CONTINUE TO MONITOR THROUGHOUT THE NIGHT.
[2022-04-24 07:32] LABS: CALCIUM, SERUM 8.9 mg/dL (8.5-10.1); CARBON DIOXIDE 36 mmol/L (21-32); CHLORIDE 104 mmol/L (98-107); CREATININE 1.8 mg/dL (0.6-1.3); GLUCOSE 83 mg/dL (74-106); MAGNESIUM 2.6 mg/dL (1.8-2.4); POTASSIUM 3.7 mmol/L (3.5-5.1); SODIUM SERUM 144 mmol/L (136-145); UREA NITROGEN, BLOOD 19 mg/dL (7-18)
[2022-04-24] MEDS: BLOOD SUGAR DIAGNOSTIC 1 EACH STRIP VI SCH ×4 (07:33→22:18)
--- NOTE | 2022-04-24 07:33 | NUR ---
CORN MILLER OPENING NOTES: RECEIVED A SAUDI ARABIAN SPEAKING PATIENT IN BED, AWAKE, ALERT, ORIENTED TO NAME. NO SOB NOTED, BREATHING EVEN AND UNLABORED. ON OXYGEN @ 2L/MIN VIA N/C WITH OXYGEN SATURATION OF 96%. ON SR PER TELE MONITOR WITH HR OF 96. IV ACCESS ON LEFT 4TH FINGER INTACT. FLUSHES WELL. NO S/S OF INFILTRATION NOTED. F/C INTACT, DRAINING WITH YELLOW COLORED URINE, NO HEMATURIA AND NO SEDIMENTATION NOTED. CALL LIGHT WITHIN REACH. BED LOCKED AND IN LOWEST POSITION. ALL SAFETY MEASURES IN PLACE. WILL CONTINUE TO MONITOR PATIENT
[2022-04-24 07:47] LABS: BASOPHILS % (AUTO) 0.6 % (0.0-2.0); EOSINOPHILS % (AUTO) 0.9 % (0.0-6.0); HEMATOCRIT 36 % (33-45); HEMOGLOBIN 11.4 g/dL (11.5-14.8); LYMPHOCYTES # (AUTO) 1.4 K/uL (0.8-4.8); LYMPHOCYTES % (AUTO) 17.9 % (20.0-44.0); MEAN CORPUSCULAR HGB CONC 31 g/dl (31.0-36.0); MEAN CORPUSCULAR VOLUME 86 fL (82-100); MONOCYTES # (AUTO) 0.4 K/uL (0.1-1.30); NEUTROPHILS # (AUTO) 5.8 K/uL (1.8-8.9); NEUTROPHILS % (AUTO) 75.6 % (43.0-81.0); PLATELET COUNT (AUTO) 208 K/uL (150-450); WHITE BLOOD COUNT (AUTO) 7.7 K/uL (4.3-11.0)
[2022-04-24 08:00] VITALS: BP 124/60
[2022-04-24] MEDS: PREGABALIN 25 MG CAPSULE PO SCH ×2 (08:03→16:39)
[2022-04-24] MEDS: PAROXETINE HCL 10 MG TABLET PO SCH (08:03)
[2022-04-24] MEDS: METOPROLOL SUCCINATE 50 MG TAB.SR.24H PO SCH (08:03)
[2022-04-24] MEDS: ASPIRIN 81 MG TAB.CHEW PO SCH (08:03)
[2022-04-24] MEDS: PANTOPRAZOLE 40 MG TABLET.DR PO SCH ×2 (08:03→16:39)
[2022-04-24] MEDS: predniSONE 20 MG TABLET PO SCH (08:04)
[2022-04-24] MEDS ORDERED: FUROSEMIDE 100 MG/10 ML VIAL IV SCH (09:00)
[2022-04-24] MEDS ORDERED: ERGOCALCIFEROL (VITAMIN D 2) 50,000 UNIT CAPSULE PO SCH (09:00)
[2022-04-24] MEDS: BRIMONIDINE TARTRATE OPHT SOLN 5 ML BOTTLE EACHEYE SCH ×3 (09:51→16:39)
[2022-04-24 09:54] LABS: BAND % (MANUAL) 6 % (0.0-5.0); LYMPHOCYTES % (MANUAL) 8 % (16-48); MONOCYTES % (MANUAL) 8 % (0-11.0); NEUTROPHILS % (MANUAL) 78 (42-76)
--- NOTE | 2022-04-24 10:00 | NUR ---
PATIENT ACCIDENTALLY PULLED OUT HER IV LINE ON LEFT FINGER, TRIED TO REINSERT BUT WAS UNSUCCESSFUL, HELIO CAME AND INSERTED A NEW ONE ON HER RIGHT UPPER ARM # 20.
[2022-04-24] MEDS ORDERED: FURO-145 PO (10:43)
[2022-04-24 12:00] VITALS: BP 114/57
[2022-04-24] MEDS: INSULIN REGULAR, HUMAN 100 UNIT/ML 3 ML VIAL SQ PRN ×2 (12:36→17:36)
--- NOTE | 2022-04-24 13:37 | NUR ---
COLLECTED RAPID COVID TEST AND HANDED TO ESPERANZA AT THE LAB. WILL MONITOR FOR THE RESULT.
--- NOTE | 2022-04-24 14:49 | NUR ---
PATIENT'S DAUGHTER ZENAIDA CAME AND MENTIONED THAT THE PATIENT HAS BEEN SAYING THAT SHE'S GOING TO AND HAS BEEN CALLING ALL THE FAMILY MEMBERS TO GET HER STUFF READY. PATIENT ALSO STATED THAT 2 MEN IN BLACK CAME TO HER ROOM LAST NIGHT AND TOOK OFF HER MAS AND SAID TO HER THAT "YOU'RE GOING TO "
[2022-04-24 16:00] VITALS: BP 114/52
--- NOTE | 2022-04-24 18:55 | NUR ---
TELE CLOSING NOTES: PATIENT IN BED, AWAKE, ALERT, ORIENTED X 1. NO SOB NOTED, NO RESPIRATORY DISTRESS NOTED. ON OXYGEN @ 2L/MIN VIA N/C WITH OXYGEN SATURATION OF 97%. ON SR WITH HR OF 75 PER TELE MONITOR. PATIENT HAS SALINE LOCK ON PATIENT'S RIGHT UPPER ARM, INTACT, FLUSHES WELL. F/C INTACT, EMPTIED 250 ML OF DARK YELLOW COLORED URINE, NO HEMATURIA AND NO SEDIMENTATION NOTED. BED LOCKED AND IN LOWEST POSITION. CALL LIGHT WITHIN REACH. WILL ENDORSE TO NEXT SHIFT NURSE FOR CONTINUITY OF CARE.
[2022-04-24 20:00] VITALS: BP 99/38
--- NOTE | 2022-04-24 21:45 | NUR ---
RT NOTE PT REFUSING BIPAP AT THIS TIME. NO RESPIRATORY DISTRESS NOTED. PT TOLERATING 3LPM NASAL CANNULA WELL. RN NOTIFIED AND IS AWARE.
[2022-04-24] MEDS: AMLODIPINE BESYLATE 5 MG TABLET PO SCH (22:00)
[2022-04-24] MEDS: CEFTRIAXONE 1 G in IV D5W 50 ML IV SCH (22:16)
[2022-04-24] MEDS: SENNOSIDES 8.6 MG TABLET PO SCH (22:16)
[2022-04-24] MEDS: LATANOPROST EYE DROP 0.005% 2.5 ML BOTTLE EACHEYE SCH (22:16)
--- NOTE | 2022-04-24 22:53 | NUR ---
RN NOTE BP NOTED TO BE 99/38; AMLODIPINE SCHEDULED FOR 2200 NON-ADMINISTERED.
--- NOTE | 2022-04-24 23:15 | NUR ---
DOWEL INSERTING MACHINE OPERATOR OPENING NOTE PT RECEIVED IN BED, AWAKE, COOK ISLANDER-SPEAKING ONLY, A&O X2. PT IS ON 3L NC WITH O2SAT OF 97%; NO S/S OF RESP DISTRESS, NO SOB OR COUGH, NON-LABORED AND EQUAL BREATHING. PT ATTACHED TO EXTERNAL MONITOR, SR WITH HR OF 76. CHAIREZ INTACT AND PATENT, NO SIGNS OF LEAKING, DRAINING CLEAR AND YELLOW URINE. PT IS AMBULATORY WITH ASSIST AND IS ABLE TO USE BEDSIDE COMMODE. IV ACCESS ON LEFT FOREARM, 20G INTACT AND PATENT, FLUSHES EASILY WITH NO RESISTANCE; NS TKO AT 5 ML/HR. BED IN LOWEST POSITION, CALL LIGHT WITHIN REACH, SIDE RAILS UP X2. WILL CONTINUE TO MONITOR THROUGHOUT THE NIGHT.
[2022-04-25] VITALS: BP 116/64
[2022-04-25 04:00] VITALS: BP 131/62
--- NOTE | 2022-04-25 07:37 | NUR ---
ROCK LATHER CLOSING NOTE PT REMAINS IN BED, AWAKE, CONFUSED, A&O X0; HAD AN ATTEMPT OF GETTING OUT OF BED. CONTINUES TO BE ON 3L NC WITH O2SAT STABLE AT 97% THROUGHOUT THE WHOLE NIGHT WITH NO S/S OF RESP DISTRESS. ATTACHED TO EXTERNAL MONITOR SR WITH HR OF 85. CHAIREZ INTACT AND PATENT, DRAINING CLEAR AND YELLOW URINE. IV ACCESS ON LEFT FOREARM 20G, INTACT AND PATENT. ALL DUE MEDS ADMINISTERED DURING THE NIGHT. BED IN LOWEST POSITION, CALL LIGHT WITHIN REACH, SIDE RAILS UP X3. WILL ENDORSE TO DAYSHIFT NURSE TO CONTINUE CARE.
--- NOTE | 2022-04-25 07:39 | NUR ---
MEDICAL RECORDS RECEPTIONIST OPENING NOTE PT RECEIVED IN BED, AWAKE, FRENCH-SPEAKING. PT IS ON 3L OXYGEN VIA NC. NO S/S OF RESP DISTRESS, NO SOB OR COUGH, NON-LABORED AND EQUAL BREATHING. PT ON TELE MONITORING WITH READING OF SR HR=88. CHAIREZ INTACT, DRAINING CLEAR AND YELLOW URINE. IV ACCESS ON LEFT FOREARM 20G, INTACT. NS TKO AT 5 ML/HR. BED IN LOWEST POSITION, CALL LIGHT WITHIN REACH, SIDE RAILS UP X2. WILL CONTINUE TO MONITOR.
[2022-04-25] MEDS: BLOOD SUGAR DIAGNOSTIC 1 EACH STRIP VI SCH ×2 (07:46→11:44)
[2022-04-25 08:00] VITALS: BP 115/68
[2022-04-25] MEDS: ASPIRIN 81 MG TAB.CHEW PO SCH (08:25)
[2022-04-25] MEDS: PREGABALIN 25 MG CAPSULE PO SCH ×2 (08:25→16:17)
[2022-04-25] MEDS: PAROXETINE HCL 10 MG TABLET PO SCH (08:25)
[2022-04-25] MEDS: predniSONE 20 MG TABLET PO SCH (08:25)
[2022-04-25] MEDS: METOPROLOL SUCCINATE 50 MG TAB.SR.24H PO SCH (08:26)
[2022-04-25] MEDS: PANTOPRAZOLE 40 MG TABLET.DR PO SCH ×2 (08:26→16:17)
[2022-04-25] MEDS: TRAMADOL HCL 50 MG TABLET PO PRN (08:28)
[2022-04-25] MEDS: BRIMONIDINE TARTRATE OPHT SOLN 5 ML BOTTLE EACHEYE SCH ×3 (08:30→16:17)
[2022-04-25] MEDS ORDERED: LORAZEPAM INJ 2 MG/ML VIAL IV PRN (11:00)
--- NOTE | 2022-04-25 11:02 | NUR ---
RN NOTE PATIENT BECAME COMBATIVE, KICKED INSURANCE ADVISER AND THREW CALL LIGHT AT STAFF. INFORMED DR. MONTOYA. RECEIVED ORDER FOR 0.5MG ATIVAN IV PRN 6HR. ALSO RE QUESTED PSYCH CONSULT . ORDERS PLACED
[2022-04-25 12:00] VITALS: BP_SYST 118; BP_SYST 98; BP_DIAS 64; BP_DIAS 70
[2022-04-25] MEDS: INSULIN REGULAR, HUMAN 100 UNIT/ML 3 ML VIAL SQ PRN (12:04)
--- NOTE | 2022-04-25 12:51 | NUR ---
RN NOTE PER DR JUAN C RUSH TO CHANGE ATIVAN IV TO PO. MEDICATION CHANGED
[2022-04-25] MEDS: DIVALPROEX SODIUM 125 MG CAP.SPRINK PO SCH ×2 (12:54→16:17)
[2022-04-25] MEDS ORDERED: LORAZEPAM 0.5 MG TABLET PO PRN (13:00)
--- NOTE | 2022-04-25 14:20 | NUR ---
RETAIL SALES ASSOCIATE SEASONAL NOTES CALLED [facility], SPOKE TO FLORI CHAPARRO AND GAVE REPORT
--- NOTE | 2022-04-25 16:38 | NUR ---
ACCOUNTS PAYABLE ASSISTANT NOTES PATIENT SPIT UP LYBENI AND JESSE, RE-ADMINISTER MEDICATION
[2022-04-25] MEDS ORDERED: GLUCERNA SHAKE 237 ML CAN PO SCH (17:00)
--- NOTE | 2022-04-25 18:08 | NUR ---
RN NOTE PATIENT WAS PICK[facility] BY EMT [facility]
== END 2022-04-25 17:42 | DRG 871 ==
LOC: ER 20:53 → TRANSITION 04-20 00:20 → TELE1 04-20 05:05 → TELE-TD 04-20 05:11 → TELE1 04-21 11:02 → MEDSG1 04-25 08:52
PROVIDERS: ADMIT Nurse Practitioner Acute Care; ATTEND Internal Medicine
PROC: 5A09357 Assistance with Respiratory Ventilation, Less than 24 Consecutive Hours, Continuous Positive Airway Pressure (ICD-10-PCS; principal; 2022-04-22)
PROC: 05HA33Z Insertion of Infusion Device into Left Brachial Vein, Percutaneous Approach (ICD-10-PCS; 2022-04-22)
DX: A41.9 Sepsis, unspecified organism (principal); G93.41 Metabolic encephalopathy; I21.A1 Myocardial infarction type 2; I50.33 Acute on chronic diastolic (congestive) heart failure; J96.01 Acute respiratory failure with hypoxia; N17.0 Acute kidney failure with tubular necrosis; N39.0 Urinary tract infection, site not specified; E87.0 Hyperosmolality and hypernatremia; J98.11 Atelectasis; E66.2 Morbid (severe) obesity with alveolar hypoventilation; I13.0 Hypertensive heart and chronic kidney disease with heart failure and stage 1 through stage 4 chronic kidney disease, or unspecified chronic kidney disease; M79.7 Fibromyalgia; Z20.822 Contact with and (suspected) exposure to COVID-19; D46.9 Myelodysplastic syndrome, unspecified; F41.9 Anxiety disorder, unspecified; F32.A Depression, unspecified; Z88.5 Allergy status to narcotic agent; Z88.8 Allergy status to other drugs, medicaments and biological substances; Z79.899 Other long term (current) drug therapy; B96.89 Other specified bacterial agents as the cause of diseases classified elsewhere; E87.8 Other disorders of electrolyte and fluid balance, not elsewhere classified; H40.9 Unspecified glaucoma; I70.0 Atherosclerosis of aorta; E04.2 Nontoxic multinodular goiter; N18.9 Chronic kidney disease, unspecified; N28.1 Cyst of kidney, acquired; M06.9 Rheumatoid arthritis, unspecified; E16.2 Hypoglycemia, unspecified
CPT/HCPCS: 36415; 36600; 70450-TC; 70496-TC; 70498-TC; 71045-TC; 76770-TC; 80048-TC; 80053-TC; 80061-TC; 81001; 82570-TC; 82962-TC; 83735-TC; 83880; 84100-TC; 84300-TC; 84443-TC; 84484-TC; 85025-TC; 85730-TC; 87081-TC; 87086-TC; 87186-TC; 92507-TC; 92521; 92526; 92611-TC; 93307-TC; 94799-TC; 97112-TC; 97530-TC; C9113; C9803; G0378; J0696; J1447; J1644; J1815; J1940; J2060; J2405; J3475; J3480; J3490; J7040; J7050; J7060; J7070; Q9967

== ENCOUNTER 2022-05-01 18:15 | Inpatient (IN) | payer MEDICARE, OTHER ==
[~2022-05-01] VITALS: Ht 152.4 cm; Wt 80.3 kg
[~2022-05-01 18:15] MED LIST changes: +ALPR0.5T8 PO; +AMLO5TAB4 PO; -AMOX-430 PO; +BRIM5DRO11 EACHEYE; +ERGO500093 PO; +FURO-145 PO; +LATA2.5D15 EACHEYE; +METO-357 PO; +PANT40TA2 PO; +PARO10TA4 PO; +PREG50CA PO; +SENN-175 PO; +TRAM50TA2 PO
--- NOTE | 2022-05-01 18:38 | NUR ---
BIB PA [facility] C/O L HIP/LLE AND GROIN PAIN S/P UNWITNESSED GLF AT 1520. PLACED ON BED, AAOX4, BREATHING EVEN AND UNLABORED SATURATING 96% ON 2LIT O2, IN PAIN 10/10 PS
[2022-05-01] MEDS ORDERED: ACET-868 PO (19:09)
[2022-05-01] MEDS ORDERED: CRAN425C6 PO (19:09)
[2022-05-01] MEDS ORDERED: NA P133E RC (19:09)
[2022-05-01] MEDS ORDERED: BISA10SU11 RC (19:09)
[2022-05-01] MEDS ORDERED: DOCU-141 PO (19:09)
[2022-05-01] MEDS ORDERED: FURO20TA4 PO (19:09)
[2022-05-01] MEDS ORDERED: LINA5TAB PO (19:09)
[2022-05-01] MEDS ORDERED: MAGN400O6 PO (19:09)
[2022-05-01] MEDS ORDERED: INSU100I43 SQ (19:09)
--- NOTE | 2022-05-01 19:37 | NUR ---
RAC #20G S/L BLOOD COLLECTED AND SENT TO LAB
[2022-05-01 20:01] LABS: BASOPHILS # (AUTO) 0.1 K/uL (0.0-0.2); BASOPHILS % (AUTO) 0.6 % (0.0-2.0); EOSINOPHILS % (AUTO) 0.5 % (0.0-6.0); HEMATOCRIT 36 % (33-45); HEMOGLOBIN 11.4 g/dL (11.5-14.8); LYMPHOCYTES # (AUTO) 1.4 K/uL (0.8-4.8); LYMPHOCYTES % (AUTO) 15.6 % (20.0-44.0); MEAN CORPUSCULAR HGB CONC 31 g/dl (31.0-36.0); MEAN CORPUSCULAR VOLUME 87 fL (82-100); MONOCYTES # (AUTO) 0.6 K/uL (0.1-1.30); NEUTROPHILS % (AUTO) 76.3 % (43.0-81.0); PLATELET COUNT (AUTO) 254 K/uL (150-450); RED BLOOD CELL COUNT(AUTO) 4.18 MIL/uL (4.0-5.2); WHITE BLOOD COUNT (AUTO) 9.1 K/uL (4.3-11.0)
--- NOTE | 2022-05-01 20:12 | NUR ---
WIND TURBINE SERVICE TECHNICIAN AT PT'S BEDSIDE
--- NOTE | 2022-05-01 20:20 | NUR ---
NANCY [phone] DAISY.
--- NOTE | 2022-05-01 20:36 | NUR ---
F/C 16FR INSERTED; URINE COLLECTED AND SENT TO LAB
--- NOTE | 2022-05-01 20:36 | NUR ---
SWAB FOR COVID19 AND URINE SAMPLE SET TO LAB
--- NOTE | 2022-05-01 20:36 | NUR ---
COVID ANTIGEN SWAB COLLECTED AND SENT TO LAB
[2022-05-01 20:40] LABS: ALANINE AMINOTRANSFERASE 20 U/L (12-78); ALBUMIN 2.7 g/dL (3.4-5.0); ALKALINE PHOSPHATASE 96 U/L (46-116); ASPARTATE AMINOTRANSFERASE 19 U/L (15-37); BILIRUBIN,DIRECT 0.2 mg/dL (0.0-0.2); BILIRUBIN,TOTAL 0.7 mg/dL (0.2-1.0); CALCIUM, SERUM 8.8 mg/dL (8.5-10.1); CARBON DIOXIDE 36 mmol/L (21-32); CHLORIDE 101 mmol/L (98-107); CREATININE 2.8 mg/dL (0.6-1.3); GLUCOSE 139 mg/dL (74-106); POTASSIUM 3.4 mmol/L (3.5-5.1); SODIUM SERUM 142 mmol/L (136-145); TOTAL PROTEIN, SERUM 5.8 g/dL (6.4-8.2); UREA NITROGEN, BLOOD 26 mg/dL (7-18)
--- NOTE | 2022-05-01 20:55 | NUR ---
DR BLAKELY ON THE PHONE WITH DR LAUREL ALBERTO
[2022-05-01] MEDS ORDERED: ONDANSETRON HCL/PF 4 MG/2 ML VIAL ONE (20:59)
[2022-05-01] MEDS ORDERED: MORPHINE SULFATE INJ 4 MG/ML DISP.SYRIN ONE (20:59)
[2022-05-01] MEDS ORDERED: ONDANSETRON HCL/PF - ER 4 MG/2 ML VIAL IV ONE (21:00)
[2022-05-01] MEDS ORDERED: MORPHINE SULFATE INJ 2 MG/ML DISP.SYRIN IV ONE (21:00)
[2022-05-01 21:41] LABS: BILIRUBIN,URINE SMALL (NEGATIVE); COLOR,URINE YELLOW (YELLOW); LEUKOCYTE ESTERASE ,URINE SMALL (NEGATIVE); NITRITE, URINE NEGATIVE (NEGATIVE); PROTEIN,URINE NEGATIVE (NEGATIVE); UGLUCOSE NEGATIVE (NEGATIVE); UROBILINOGEN,URINE 0.2 EU/dL (0.2)
--- NOTE | 2022-05-01 22:11 | NUR ---
REPORT GIVEN TO STANLEY RN ROOM 326-2 FOR PERLA
[2022-05-01 22:20] LABS: BACTERIA,URINE 1+ /HPF (None Seen); YEAST,URINE Few /HPF (None Seen)
[2022-05-01] MEDS ORDERED: ALPRAZOLAM 0.5 MG TABLET PO PRN (22:30)
[2022-05-01] MEDS ORDERED: ONDANSETRON HCL/PF 4 MG/2 ML VIAL IVP PRN (22:30)
[2022-05-01] MEDS ORDERED: DEXTROSE 50%-WATER 50 ML DISP.SYRIN IV PRN (22:30)
[2022-05-01] MEDS: FUROSEMIDE 20 MG TABLET PO SCH ×2 (22:30→23:37)
[2022-05-01] MEDS ORDERED: MORPHINE SULFATE INJ 2 MG/ML DISP.SYRIN IV PRN (22:30)
[2022-05-01] MEDS ORDERED: hydrALAZINE HCL IV 20 MG VIAL IV PRN (22:30)
[2022-05-01] MEDS ORDERED: INSULIN REGULAR, HUMAN 100 UNIT/ML 3 ML VIAL SQ PRN (22:30)
[2022-05-01 22:35] VITALS: BP 73/52
--- NOTE | 2022-05-01 22:35 | NUR ---
MS RN ADMITTING NOTES PATIENT ADMITTED TO UNIT VIA GURNEY WITH DIAGNOSIS OF LEFT HIP FRACTURE ACCOMPANIED BY CARBON BLOCKS PRESS OPERATOR ANCELMO. PATIENT IS A/OX2, POLISH SPEAKING. BREATHING EVEN AND UNLABORED. IV ACCESS ON RAC G#20 PATENT AND INTACT AND FLUSHING WELL. SAFETY PRECAUTIONS IMPLEMENTED. BED PLACED ON LOWEST LOCKED POSITION. HOB ELEVATED. SIDE RAILS UPX2. CALL LIGHT AND TRAY TABLE WITHIN REACH OF PATIENT. SEEN AND EXAMINED BY DR. SHIELDS WITH NEW ORDERS. WILL CONTINUE TO MONITOR PATIENT CLOSELY THROUGHOUT THE SHIFT.
[2022-05-01 23:35] VITALS: BP 90/56
--- NOTE | 2022-05-01 23:44 | NUR ---
MS CHAPARRO NOTES PER CHARGE NURSE CA MANUEL TO BE HELD PER DR. SHIELDS. Addendum: 05/02/22 at 0031 by CHICO MOLINA RN BLOOD PRESSURE 75/35 HR 81.
[2022-05-02] VITALS (21 sets, daily range): BP systolic 90–136; BP diastolic 36–58
[2022-05-02] MEDS ORDERED: MIDODRINE HCL (5MG) 5 MG TABLET PO PRN
[2022-05-02] MEDS ORDERED: IV NS 0.9% 1,000 ML IV ONE
[2022-05-02] MEDS ORDERED: ALBUMIN 25% 100 ML IV ONE (00:08)
[2022-05-02] MEDS: ALBUMIN 25% 25 GM in PREMIX 1 EA IV SCH ×2 (00:17→12:57)
[2022-05-02] MEDS: CEFTRIAXONE 1 G VIAL IV SCH ×2 (02:22→21:13)
--- NOTE | 2022-05-02 05:30 | NUR ---
MS RN NOTES RECEIVED A CALL FROM PATIENT'S DAUGHTER NANCY ([phone]) STATED SHE DOES NOT WANT HER MOTHER TO HAVE A SURGERY HERE IN [facility]. SHE WANTS HER MOTHER TO BE TRANSFERRED TO [facility] SINCE HER MOM HAD RECEIVED CHEMO [facility]. PATIENT'S DAUGHTER IS ALSO REQUESTING TO SPEAK WITH THE SURGEON TODAY. CHARGE NURSE CA JUSTICE. WILL ENDORSE TO DAY SHIFT NURSE FOR CONTINUITY OF CARE.
--- NOTE | 2022-05-02 06:19 | NUR ---
MS RN CLOSING NOTES PATIENT SLEEPING IN BED BUT AROUSED EASILY. NO S/SX OF ACUTE DISTRESS NOTED. BREATHING EVEN AND UNLABORED. PATIENT ON 2LPM VIA NASAL CANNULA, TOLERATED WELL. REPOSITIONED FOR COMFORT. IV ON RAC#20G PATENT, INTACT AND FLUSHES WELL. CHAIREZ CATHETER IN PLACE DRAINING TO GRAVITY WITH CLOUDY YELLOW URINE OUTPUT NOTED. F/C CARE DONE. SAFETY PRECAUTIONS MAINTAINED. CALL LIGHT WITHIN REACH. SIDE RAILS UPX3. BED IN LOWEST LOCKED POSITION. WILL ENDORSE TO DAY SHIFT NURSE FOR CONTINUITY OF CARE.
--- NOTE | 2022-05-02 06:34 | NUR ---
MS RN NOTES PATIENT BLOOD SUGAR WAS 179MG/DL WITH COVERAGE. REGULAR INSULIN OF 3UNITS WAS NOT ADMINISTERED DUE TO PATIENT IS NPO. WILL ENDORSE TO DAY SHIFT NURSE.
[2022-05-02 07:11] LABS: BASOPHILS # (AUTO) 0.1 K/uL (0.0-0.2); BASOPHILS % (AUTO) 0.5 % (0.0-2.0); EOSINOPHILS % (AUTO) 0.5 % (0.0-6.0); HEMATOCRIT 32 % (33-45); HEMOGLOBIN 9.9 g/dL (11.5-14.8); LYMPHOCYTES # (AUTO) 1.4 K/uL (0.8-4.8); LYMPHOCYTES % (AUTO) 12.7 % (20.0-44.0); MEAN CORPUSCULAR HGB CONC 31 g/dl (31.0-36.0); MEAN CORPUSCULAR VOLUME 89 fL (82-100); MONOCYTES # (AUTO) 0.9 K/uL (0.1-1.30); MONOCYTES % (AUTO) 7.8 % (2.0-12.0); NEUTROPHILS # (AUTO) 8.9 K/uL (1.8-8.9); NEUTROPHILS % (AUTO) 78.5 % (43.0-81.0); PLATELET COUNT (AUTO) 238 K/uL (150-450); RED BLOOD CELL COUNT(AUTO) 3.66 MIL/uL (4.0-5.2); WHITE BLOOD COUNT (AUTO) 11.3 K/uL (4.3-11.0)
[2022-05-02] MEDS: BLOOD SUGAR DIAGNOSTIC 1 EACH STRIP VI SCH ×4 (07:14→21:30)
[2022-05-02 07:22] LABS: ALANINE AMINOTRANSFERASE 18 U/L (12-78); ALKALINE PHOSPHATASE 84 U/L (46-116); ASPARTATE AMINOTRANSFERASE 15 U/L (15-37); BILIRUBIN,TOTAL 0.5 mg/dL (0.2-1.0); CALCIUM, SERUM 8.1 mg/dL (8.5-10.1); CARBON DIOXIDE 35 mmol/L (21-32); CHLORIDE 103 mmol/L (98-107); CREATININE 2.8 mg/dL (0.6-1.3); GLUCOSE 211 mg/dL (74-106); MAGNESIUM 2.2 mg/dL (1.8-2.4); POTASSIUM 3.2 mmol/L (3.5-5.1); SODIUM SERUM 143 mmol/L (136-145); TOTAL PROTEIN, SERUM 5.7 g/dL (6.4-8.2); UREA NITROGEN, BLOOD 27 mg/dL (7-18)
[2022-05-02] MEDS: DOCUSATE SODIUM LIQ 100 MG/10 ML UDC PO SCH ×2 (09:00→17:00)
[2022-05-02] MEDS: PANTOPRAZOLE 40 MG TABLET.DR PO SCH ×2 (09:00→17:00)
[2022-05-02] MEDS: PREGABALIN 25 MG CAPSULE PO SCH ×2 (09:00→17:00)
[2022-05-02] MEDS ORDERED: DOCUSATE SODIUM 100 MG CAPSULE PO SCH (09:00)
[2022-05-02] MEDS: PAROXETINE HCL 10 MG TABLET PO SCH (09:00)
[2022-05-02] MEDS: METOPROLOL SUCCINATE 50 MG TAB.SR.24H PO SCH (09:00)
[2022-05-02] MEDS: POLYETHYLENE GLYCOL 3350 17 GM POWD.PACK PO SCH (09:00)
[2022-05-02] MEDS: FUROSEMIDE 20 MG TABLET PO SCH (09:00)
--- NOTE | 2022-05-02 09:00 | NUR ---
RN OPENING NOTE PATIENT AWAKE IN BED SLEEPING, AWAKENS TO VERBAL, TOUCH STIMULI. NO S/S OF PAIN NOTED AT THIS TIME. ON 2L OXYGEN VIA NC, NO DISTRESS OR SHORTNESS OF BREATH NOTED. IV ACCESS RAC #20G, INTACT, PATENT AND FLUSHING WELL. FALL AND SAFETY MEASURES IN PLACE, BED ALARM ON, BED IN LOW AND LOCK POSITION, CALL LIGHT AND TABLE WITHIN EASY REACH, SIDE RAILS UP X2. WILL CONTINUE TO MONITOR.
--- NOTE | 2022-05-02 09:57 | NUR ---
WOUND CARE CONSULT: PT PRESENTS WITH MULTIPLE AREAS OF SKIN DISCOLORATION INCLUDING UPPER EXTREMITIES, SCARRING TO SACRAL AREA AND RASH TO BREASTFOLDS/BETWEEN BREASTS, PRESENT ON ADMISSION. PT IS ON JUAN ISOFLEX LOW AIRLOSS BED. CHAIREZ CATH NOTED. PT HAS VERY LARGE ABDOMEN. RECOMMENDATIONS MADE FOR SKIN PROTECTION. DISCUSSED WITH NURSING STAFF. MD IN AGREEMENT WITH PLAN OF CARE.
[2022-05-02] MEDS: BRIMONIDINE TARTRATE OPHT SOLN 5 ML BOTTLE EACHEYE SCH ×2 (10:37→17:00)
[2022-05-02] MEDS ORDERED: POTASSIUM CHLORIDE 20 MEQ POWDER PACKET PO SCH (11:00)
--- NOTE | 2022-05-02 11:10 | NUR ---
RN NOTE PATIENT IS VERY SLEEPY, VERY HARD TO WAKE UP, RESPONSE TO PAIN. UNABLE TO GIVE PO MEDICATIONS. V/S WERE TAKEN, BP: 98/67 P:67, BP:111/52 P:78 PATIENT SAT. 90% ON 4L OXYGEN VIA NC. BLOOD SUGAR: 216. DOCTOR WAS INFORMED WAITING FOR RESPONSE. CHARGE NURSE AWARE. WILL CONTINUE TO MONITOR.
[2022-05-02 12:20] LABS: BAND % (MANUAL) 3 % (0.0-5.0); LYMPHOCYTES % (MANUAL) 10 % (16-48); MONOCYTES % (MANUAL) 5 % (0-11.0); NEUTROPHILS % (MANUAL) 82 (42-76)
[2022-05-02] MEDS: Z GUARD REMEDY 4 OZ OINT TP PRN (12:57)
[2022-05-02] MEDS: Z GUARD REMEDY 4 OZ OINT TP SCH (13:03)
[2022-05-02 13:14] LABS: ABG BASE EXCESS -0.6 mmol/L; ABG OXYGEN SATURATION 97.6 % (92.0-98.5); ABG PCO2 78.4 mmHg (35.0-45.0); ABG PH 7.189 (7.350-7.450); ABG PO2 115.7 mmHg (75.0-100.0); COHb 0.9 % (0.5-1.5); MetHb 0.5 % (0.0-1.5); O2Hb 96.2 % (94.0-97.0); SITE, ABG LEFT ARM; VENT MODE, BG 7 L SM
--- NOTE | 2022-05-02 14:03 | NUR ---
RN NOTE PATIENT WAS TRANSFERRED TO ICU, BEDSIDE REPORT GIVEN TO
[2022-05-02] MEDS: IPRATROPIUM NEB FS 0.5 MG/2.5 ML AMPUL.NEB NEB SCH ×2 (14:35→20:24)
[2022-05-02] MEDS: ALBUTEROL HALF STRENGTH 1.25 MG/3 ML VIAL.NEB NEB SCH ×2 (14:35→20:24)
--- NOTE | 2022-05-02 14:47 | NUR ---
pt. is awake placed into bipap due to 78 pco2 and 7.18 PH with following parameters as ordered: ipap 20, epap 5, rate 14, pao2 24%. breath sound diminished bilateral ambubag @ head of the board. Addendum: 05/02/22 at 1452 by SENIA WADDELL RT Amended: Links added.
[2022-05-02 16:27] LABS: ABG BASE EXCESS 1.8 mmol/L; ABG OXYGEN SATURATION 96.5 % (92.0-98.5); ABG PCO2 67.2 mmHg (35.0-45.0); ABG PH 7.267 (7.350-7.450); ABG PO2 91.5 mmHg (75.0-100.0); AaDO2 189.4 mmHg; COHb 0.7 % (0.5-1.5); MetHb 0.2 % (0.0-1.5); O2Hb 95.6 % (94.0-97.0); SITE, ABG Right Brachial
--- NOTE | 2022-05-02 16:40 | NUR ---
placed Mepilex between nosebridge and bipap mask to prevent pressure sore. Addendum: 05/02/22 at 1642 by SENIA WADDELL RT Amended: Links added.
[2022-05-02] MEDS: CLOTRIMAZOLE 1% 15 GM TUBE TP SCH (17:00)
--- NOTE | 2022-05-02 17:47 | NUR ---
PO meds held. Pt remains lethargic on BiPAP. High risk for Aspiration
[2022-05-02] MEDS ORDERED: HEPARIN SODIUM, PORCINE 5000 UNITS/1 ML VIAL SQ SCH (20:00)
--- NOTE | 2022-05-02 20:06 | NUR ---
RN NOTE\ RECEIVED PT ON BIPAP 20/5 FIO2 50%. LETHARGIC. NOT IN ANY DISTRESS. O2 SAT AT 97%. FAMILY AT BEDSIDE. CHAIREZ CATH IN PLACE. WILL CONTINUE TO MONITOR.
[2022-05-02] MEDS: HEPARIN SODIUM, PORCINE 5000 UNITS/1 ML VIAL SQ SCH (21:15)
[2022-05-02] MEDS: LATANOPROST EYE DROP 0.005% 2.5 ML BOTTLE EACHEYE SCH (21:22)
[2022-05-02] MEDS ORDERED: AMLODIPINE BESYLATE 5 MG TABLET PO SCH (22:00)
[2022-05-03] VITALS (66 sets, daily range): BP systolic 68–128; BP diastolic 29–70
[2022-05-03] MEDS: IPRATROPIUM NEB FS 0.5 MG/2.5 ML AMPUL.NEB NEB SCH ×4 (01:54→19:45)
[2022-05-03] MEDS: ALBUTEROL HALF STRENGTH 1.25 MG/3 ML VIAL.NEB NEB SCH ×4 (01:54→19:45)
[2022-05-03 03:49] LABS: BASOPHILS % (AUTO) 0.2 % (0.0-2.0); EOSINOPHILS % (AUTO) 0.3 % (0.0-6.0); HEMATOCRIT 33 % (33-45); HEMOGLOBIN 10.2 g/dL (11.5-14.8); LYMPHOCYTES % (AUTO) 10.7 % (20.0-44.0); MEAN CORPUSCULAR HGB CONC 31 g/dl (31.0-36.0); MEAN CORPUSCULAR VOLUME 90 fL (82-100); MONOCYTES # (AUTO) 0.7 K/uL (0.1-1.30); NEUTROPHILS # (AUTO) 7.2 K/uL (1.8-8.9); NEUTROPHILS % (AUTO) 80.8 % (43.0-81.0); PLATELET COUNT (AUTO) 180 K/uL (150-450); RED BLOOD CELL COUNT(AUTO) 3.68 MIL/uL (4.0-5.2); WHITE BLOOD COUNT (AUTO) 8.9 K/uL (4.3-11.0)
[2022-05-03 04:05] LABS: CALCIUM, SERUM 8.4 mg/dL (8.5-10.1); CARBON DIOXIDE 31 mmol/L (21-32); CHLORIDE 102 mmol/L (98-107); CREATININE 2.5 mg/dL (0.6-1.3); GLUCOSE 138 mg/dL (74-106); MAGNESIUM 2.3 mg/dL (1.8-2.4); PHOSPHORUS 5.5 mg/dL (2.5-4.9); POTASSIUM 3.7 mmol/L (3.5-5.1); SODIUM SERUM 142 mmol/L (136-145); UREA NITROGEN, BLOOD 27 mg/dL (7-18)
--- NOTE | 2022-05-03 07:26 | NUR ---
RN NOTE PT MORE AWAKE NOW. CONTINUE WITH BIPAP, TOLERATING, NO DISTRESS NOTED. ENDORSED TO NEXT SHIFT NURSE FOR PERLA.
[2022-05-03] MEDS: BLOOD SUGAR DIAGNOSTIC 1 EACH STRIP VI SCH ×4 (07:31→21:52)
--- NOTE | 2022-05-03 08:43 | NUR ---
RN NOTES OFF BIPAP AT THIS TIME, PATIENT AWAKE AND CONFUSED , NC 5L FIO2-98%, KEEP HOB ELEVATED. WILL FOLLOW UP.
[2022-05-03] MEDS: PANTOPRAZOLE 40 MG TABLET.DR PO SCH ×2 (09:25→16:00)
[2022-05-03] MEDS: DOCUSATE SODIUM LIQ 100 MG/10 ML UDC PO SCH ×2 (09:25→16:00)
[2022-05-03] MEDS: METOPROLOL SUCCINATE 50 MG TAB.SR.24H PO SCH (09:25)
[2022-05-03] MEDS: PAROXETINE HCL 10 MG TABLET PO SCH (09:25)
[2022-05-03] MEDS: POLYETHYLENE GLYCOL 3350 17 GM POWD.PACK PO SCH (09:26)
[2022-05-03] MEDS: FUROSEMIDE 20 MG TABLET PO SCH (09:26)
[2022-05-03] MEDS: PREGABALIN 25 MG CAPSULE PO SCH ×2 (09:26→16:00)
[2022-05-03] MEDS: CLOTRIMAZOLE 1% 15 GM TUBE TP SCH ×2 (09:27→16:01)
[2022-05-03] MEDS: HEPARIN SODIUM, PORCINE 5000 UNITS/1 ML VIAL SQ SCH ×2 (09:27→21:23)
[2022-05-03] MEDS: BRIMONIDINE TARTRATE OPHT SOLN 5 ML BOTTLE EACHEYE SCH ×2 (09:28→16:01)
[2022-05-03] MEDS: Z GUARD REMEDY 4 OZ OINT TP SCH (09:28)
--- NOTE | 2022-05-03 09:48 | NUR ---
RN NOTES ADMINISTERED ZOFRAN 4 MG/ML IV PUSH FOR NAUSEA..
--- NOTE | 2022-05-03 10:40 | NUR ---
RN NOTES PER CHILDREN'S ATTENDANT Dr MCINTYRE GET VERBAL ORDER ALBUMIN 25% BECAUSE OF LOW BP 81/43, P-90. ORDER TAKEN AND CARRIED OUT.
[2022-05-03] MEDS ORDERED: ALBUMIN 25% 25 GM in PREMIX 1 EA IV SCH (11:00)
[2022-05-03 11:30] LABS: ABG BASE EXCESS 3.3 mmol/L; ABG OXYGEN SATURATION 91.2 % (92.0-98.5); ABG PCO2 56.3 mmHg (35.0-45.0); ABG PH 7.344 (7.350-7.450); ABG PO2 61.8 mmHg (75.0-100.0); AaDO2 158.7 mmHg; COHb 0.3 % (0.5-1.5); MetHb 0.3 % (0.0-1.5); O2Hb 90.7 % (94.0-97.0); SITE, ABG Right Radial
--- NOTE | 2022-05-03 11:37 | NUR ---
rn notes PER ABG RESULT GET VERBAL ORDER VIA Dr MCINTYRE PATIENT WILL BE BIPAP AT NIGHTTIME. ORDER TAKEN AND CARRIED OUT.
[2022-05-03] MEDS ORDERED: ALBUMIN 25% 25 GM in PREMIX 1 EA IV PRN (11:54)
[2022-05-03] MEDS: ACETAMINOPHEN 325 MG TABLET PO PRN ×2 (16:00→22:06)
[2022-05-03] MEDS ORDERED: KETOROLAC TROMETHAMINE INJ 30 MG/ML VIAL IM PRN (18:30)
[2022-05-03] MEDS ORDERED: IV NS 0.9% 250 ML IV ONE (18:30)
--- NOTE | 2022-05-03 18:33 | NUR ---
RN NOTES BS-130 MG/DL, PM CARE DONE, ADMINISTERING NS 250 ML/HR FOR LOW BP 84/43, P-92, ALSO ADMINISTERED TORADOL 15MG/ML IV PUSH FOR PAIN OF LEFT HIP FRACTURE. DUE MEDICATION ADMINISTERED, TOLERATED DINNER 30% . PATIENT PREFERRED TO STAY ON SUPINE POSITION, CHAIREZ DRAINING VIA GRAVITY. WILL FOLLOW UP. ENDORSED ONCOMING NURSE PERAL.
--- NOTE | 2022-05-03 19:45 | NUR ---
RCVD PT ON NASAL CANNULA 5L. PT PLACED ON NOCTURNAL BIPAP 20/5, RR 14, FIO2 40%. PT IS AWAKE AND ALERT. BREATHING TX GIVEN PER MD'S ORDER., NO ADVERSE REACTION NOTED. NO RESPIRATORY DISTRESS NOTED AT THIS TIME. WILL CONTINUE TO MONITOR T/O SHIFT.
--- NOTE | 2022-05-03 20:30 | NUR ---
RN NOTE RECEIVED PT ON 5L O2 VIA NC. PT DENIES ANY PAIN OR SOB. PT WAS PLACED ON BIPAP BY RT FOR NOC BIPAP PER PULMO. NO SIGNS OF DISTRESS NOTED. WILL CONTINUE TO MONITOR.
[2022-05-03] MEDS: CEFTRIAXONE 1 G VIAL IV SCH (21:23)
[2022-05-03] MEDS: *INSULIN REGULAR(HUMULIN R)HUM 100 UNIT/ML VIAL SQ PRN (21:55)
[2022-05-03] MEDS: LATANOPROST EYE DROP 0.005% 2.5 ML BOTTLE EACHEYE SCH (21:56)
[2022-05-04] VITALS (18 sets, daily range): BP systolic 88–158; BP diastolic 42–91
--- NOTE | 2022-05-04 00:28 | NUR ---
RN NOTE PT SCREAMING FOR PAIN OF LEFT HIP/LEG. WITH ORDER OF KETOROLAC PRN IM. PER PHYSICIAN VICE PRESIDENT ALTHEA OK TO GIVE THRU IV. ORDER ROUTE CHANGED TO IV.
[2022-05-04] MEDS ORDERED: KETOROLAC TROMETHAMINE INJ 30 MG/ML VIAL IV PRN ×2 (00:30→16:00)
[2022-05-04] MEDS: ALBUTEROL HALF STRENGTH 1.25 MG/3 ML VIAL.NEB NEB SCH ×4 (01:22→19:18)
[2022-05-04] MEDS: IPRATROPIUM NEB FS 0.5 MG/2.5 ML AMPUL.NEB NEB SCH ×4 (01:22→19:18)
--- NOTE | 2022-05-04 04:30 | NUR ---
RN NOTE PT WITH ONLY 35ML URINE OUTPUT ALL THROUGHOUT SHIFT, NOTIFIED TALK SHOW HOST TAMIA, NO NEW ORDER WERE MADE.
--- NOTE | 2022-05-04 05:00 | NUR ---
TAKEN OFF NOC BIPAP, PLACED PT BACK ON 3L NC. NO RESPIRATORY DISTRESS NOTED. SHANKAR CASTANON NOTIFIED
[2022-05-04 05:22] LABS: BASOPHILS % (AUTO) 0.6 % (0.0-2.0); EOSINOPHILS % (AUTO) 0.8 % (0.0-6.0); HEMATOCRIT 30 % (33-45); HEMOGLOBIN 9.5 g/dL (11.5-14.8); LYMPHOCYTES # (AUTO) 1.2 K/uL (0.8-4.8); MEAN CORPUSCULAR HGB CONC 31 g/dl (31.0-36.0); MEAN CORPUSCULAR VOLUME 89 fL (82-100); MONOCYTES % (AUTO) 15.7 % (2.0-12.0); NEUTROPHILS # (AUTO) 3.8 K/uL (1.8-8.9); NEUTROPHILS % (AUTO) 62.9 % (43.0-81.0); PLATELET COUNT (AUTO) 135 K/uL (150-450); WHITE BLOOD COUNT (AUTO) 6.1 K/uL (4.3-11.0)
[2022-05-04 05:33] LABS: CALCIUM, SERUM 8.5 mg/dL (8.5-10.1); CARBON DIOXIDE 33 mmol/L (21-32); CHLORIDE 103 mmol/L (98-107); CREATININE 2.7 mg/dL (0.6-1.3); GLUCOSE 127 mg/dL (74-106); MAGNESIUM 2.2 mg/dL (1.8-2.4); PHOSPHORUS 4.2 mg/dL (2.5-4.9); POTASSIUM 3.3 mmol/L (3.5-5.1); SODIUM SERUM 141 mmol/L (136-145); UREA NITROGEN, BLOOD 26 mg/dL (7-18)
--- NOTE | 2022-05-04 06:55 | NUR ---
RN NOTE PT TOLERATING O2 AT 3L VIA NC.O2 SAT AT 96%. NO SIGNS OF DISTRESS. PT AWAKE, STATED MILD PAIN ON LEFT LEG IN THAI. REFUSED TO HAVE PAIN MEDICATION AT THIS TIME. VS WNL. REMAIN AFEBRILE. WILL ENDORSE TO NEXT SHIFT NURSE FOR PERLA.
--- NOTE | 2022-05-04 07:10 | NUR ---
HEPATOLOGIST OPENING NOTE: RECEIVED PT. IN BED, AWAKE, AOX4, LUX[place] SPEAKING BUT UNDERSTANDS SIMPLE ROMANSH. UTILIZED [place] SPEAKING STAFF TO TRANSLATE. COMPLAINS OF ACHING 3/10 PAIN IN L LOWER EXTREMITY BUT REFUSED TO TAKE PAIN MEDS IN SPITE OF EDUCATING ON IMPORTANCE OF PAIN MANAGEMENT. ON 3L NC, NO S/S OF RESPIRATORY DISTRESS. COMPLEX CARE NURSE PRACTITIONER READS NSR WITH HR OF 95 BPM. HAS CHAIREZ CATH DRAINING CLOUDY YELLOW URINE VIA GRAVITY. MULTIPLE SKIN ISSUES NOTED. WILL DO SKIN PROTECTION RECOMMENDED BY WOUND NURSE. IV ACCESS ON R AC #20G, PATENT AND SALINE LOCKED, DRESSING C/D/I WITH NO S/S OF INFILTRATION. SAFETY MEASURES IN PLACE: BED IN LOWEST AND LOCKED POSITION, HOB ELEVATED AT 30 DEGREES, CALL LIGHT WITHIN REACH, BED ALARM ON. WILL REPOSITION AT LEAST Q2H AND WILL CONTINUE TO MONITOR PT. FOR ANY CHANGES.
[2022-05-04] MEDS: BLOOD SUGAR DIAGNOSTIC 1 EACH STRIP VI SCH ×4 (07:46→21:40)
[2022-05-04] MEDS: POLYETHYLENE GLYCOL 3350 17 GM POWD.PACK PO SCH (08:23)
[2022-05-04] MEDS: CLOTRIMAZOLE 1% 15 GM TUBE TP SCH ×2 (08:23→17:11)
[2022-05-04] MEDS: Z GUARD REMEDY 4 OZ OINT TP PRN (08:23)
[2022-05-04] MEDS: PREGABALIN 25 MG CAPSULE PO SCH ×2 (08:24→17:07)
[2022-05-04] MEDS: DOCUSATE SODIUM LIQ 100 MG/10 ML UDC PO SCH ×2 (08:24→17:07)
[2022-05-04] MEDS: POTASSIUM CHLORIDE 20 MEQ TAB.PRT.SR PO SCH ×2 (08:24→09:22)
[2022-05-04] MEDS: PAROXETINE HCL 10 MG TABLET PO SCH (08:24)
[2022-05-04] MEDS: PANTOPRAZOLE 40 MG TABLET.DR PO SCH ×2 (08:24→17:07)
[2022-05-04] MEDS: HEPARIN SODIUM, PORCINE 5000 UNITS/1 ML VIAL SQ SCH ×2 (08:25→21:22)
[2022-05-04] MEDS: METOPROLOL SUCCINATE 50 MG TAB.SR.24H PO SCH (08:25)
[2022-05-04] MEDS: Z GUARD REMEDY 4 OZ OINT TP SCH (08:26)
[2022-05-04] MEDS: BRIMONIDINE TARTRATE OPHT SOLN 5 ML BOTTLE EACHEYE SCH ×2 (08:27→17:11)
--- NOTE | 2022-05-04 10:00 | NUR ---
RN NOTE RECEIVED PATIENT WHO TRANSFERRED FROM ICU TO ROOM 101 AT [facility] BP 88/64 HR 82 T:98.5 RR:20 ALERT ORIENTED X3 VERBALLY RESPONSIVE,ON 3L OXYGEN VIA NASAL CANNULA,O2:96% IV SITE IS ON RAC INTACT PATENT,CHAIREZ CATH IN PLACE URINE DRAINING YELLOW/CLEAR BY GRAVITY,SAFETY MEASURE IMPLEMENT BED IN LOW POSITION AND LOCKED,CALL LIGHT WITHIN REACH CONTINUE TO MONITOR.
--- NOTE | 2022-05-04 10:05 | NUR ---
ROTARY DUMP OPERATORTRACK CAR OPERATOR NOTE: TRANSFERRED PT. UNDER TELE STATUS IN ROOM 101-1. PT. REMAINS AWAKE, AOX4, NO COMPLAINTS OF PAIN AT THIS TIME. ON 3L NC, NO S/S OF RESPIRATORY DISTRESS. SENIOR CENTER MANAGER READS NSR WITH HR OF 85 BPM. HAS CHAIREZ CATH DRAINING CLOUDY YELLOW URINE VIA GRAVITY. SKIN PROTECTION MEASURES DONE RECOMMENDED BY WOUND NURSE. IV ACCESS ON R AC #20G, PATENT AND SALINE LOCKED, DRESSING C/D/I WITH NO S/S OF INFILTRATION. SAFETY MEASURES MAINTAINED: BED IN LOWEST AND LOCKED POSITION, HOB ELEVATED AT 30 DEGREES, CALL LIGHT WITHIN REACH, BED ALARM ON. REPOSITIONED AT LEAST Q2H. PT. BELONGINGS, MEDS AND CHART HANDED TO MELONY RN AT BEDSIDE. ENDORSED CONTINUITY OF CARE TO VICE PRESIDENT BIOSTATISTICS MELONY AT BEDSIDE.
[2022-05-04 10:12] LABS: BAND % (MANUAL) 3 % (0.0-5.0); LYMPHOCYTES % (MANUAL) 23 % (16-48); MONOCYTES % (MANUAL) 8 % (0-11.0); NEUTROPHILS % (MANUAL) 63 (42-76)
[2022-05-04] MEDS: ACETAMINOPHEN 325 MG TABLET PO PRN (13:55)
[2022-05-04] MEDS: GLUCERNA SHAKE 237 ML CAN PO SCH (17:10)
[2022-05-04] MEDS: *INSULIN REGULAR(HUMULIN R)HUM 100 UNIT/ML VIAL SQ PRN ×2 (18:40→21:53)
--- NOTE | 2022-05-04 18:52 | NUR ---
RN NOTE PATIENT REMAINS ALERT ORIENTED X2-3 VERBALLY RESPONSIVE ON 3L OXYGEN VIA NASAL CANNULA O2:97% NO SOB NOT ACUTE DISTRESS NOTED,ALL DUE MEDS GIVEN MD ORDERED KEPT CLEAN AND DRY ALL THE TIME,KEPT COMFORTABLE,KEPT CALL LIGHT WITHIN REACH,KEPT HEAD OF BED ELEVATED,ALL NEEDS MET ENDORSE NEXT COMING SHIFT FOR CONTINUATION OF CARE.
[2022-05-04] MEDS: CEFTRIAXONE 1 G VIAL IV SCH (21:20)
[2022-05-04] MEDS: LATANOPROST EYE DROP 0.005% 2.5 ML BOTTLE EACHEYE SCH (21:28)
--- NOTE | 2022-05-04 21:30 | NUR ---
PT RCVD ON 3L NC , PLACED PT ON NOC BIPAP. NO RESPIRATORY DISTRESS NOTED AT THIS TIME, SHANKAR HENDERSON NOTIFIED.
--- NOTE | 2022-05-04 23:00 | NUR ---
FOOD AND DRUG INSPECTOR OPENING NOTE PT RECEIVED IN BED, AWAKE, A&O X3-4, DANISH-SPEAKING, CALM, COOPERATIVE. PT ON 3L NC DURING START OF SHIFT; HAS BEEN PLACED ON NOCTURNAL BIPAP AT 2130; CURRENT O2SAT OF 98%; NO S/S OF RESP DISTRESS, NO SOB OR COUGH, NON-LABORED AND EQUAL BREATHING. PT ATTACHED TO EXTERNAL MONITOR, SR WITH HR OF 82. CHAIREZ INTACT AND PATENT WITH NO SIGNS OF LEAKING, DRAINING CLEAR AND YELLOW URINE. IV ACCESS ON RAC 20G, INTACT AND PATENT, FLUSHES EASILY WITH NO RESISTANCE. BED IN LOWEST POSITION, CALL LIGHT WITHIN REACH, SIDE RAILS UP X2. WILL CONTINUE TO MONITOR THROUGHOUT THE NIGHT.
[2022-05-05] VITALS: BP 93/49
[2022-05-05] MEDS: IPRATROPIUM NEB FS 0.5 MG/2.5 ML AMPUL.NEB NEB SCH ×3 (00:53→12:43)
[2022-05-05] MEDS: ALBUTEROL HALF STRENGTH 1.25 MG/3 ML VIAL.NEB NEB SCH ×3 (00:53→12:43)
--- NOTE | 2022-05-05 01:02 | NUR ---
RN NOTE PT REPORTS OF A 6/10 PAIN ON LEFT HIP. PT ADMINISTERED KETOROLAC 15 MG. WILL MONITOR FOR EFFECTIVENESS.
--- NOTE | 2022-05-05 01:07 | NUR ---
RN NOTE PT REFUSES NOCTURNAL BIPAP. NC 3L PLACED ON PT.
--- NOTE | 2022-05-05 01:09 | NUR ---
PT REFUSED NOC BIPAP AT THIS TIME. NO RESPIRATORY DISTRESS NOTED , RN AWARE.
[2022-05-05 04:00] VITALS: BP 103/42
--- NOTE | 2022-05-05 06:45 | NUR ---
DIVISION ORDER TECHNICIAN CLOSING NOTE PT REMAINS IN BED, AWAKE, A&O X2-3, CONFUSED WITH PERIODS OF AGITATION. PT ON 3L NC WITH O2SAT RANGING FROM 94%-98%; NO S/S OF RESP DISTRESS, NO SOB OR COUGH, NON-LABORED AND EQUAL BREATHING. ATTACHED TO EXTERNAL MONITOR SR WITH HR RANGING FROM 82-92. CHAIREZ INTACT AND PATENT, DRAINING CLEAR AND YELLOW URINE. IV ACCESS ON RAC 20G SL, INTACT AND PATENT, FLUSHES EASILY WITH NO RESISTANCE. ALL DUE MEDS ADMINISTERED DURING THE NIGHT. BED IN LOWEST POSITION, CALL LIGHT WITHIN REACH, SIDE RAILS UP X3. WILL ENDORSE TO DAYSHIFT NURSE TO CONTINUE CARE.
[2022-05-05 06:52] LABS: BASOPHILS % (AUTO) 0.5 % (0.0-2.0); EOSINOPHILS % (AUTO) 0.9 % (0.0-6.0); HEMATOCRIT 28 % (33-45); MEAN CORPUSCULAR HGB CONC 32 g/dl (31.0-36.0); MEAN CORPUSCULAR VOLUME 88 fL (82-100); MONOCYTES # (AUTO) 0.8 K/uL (0.1-1.30); MONOCYTES % (AUTO) 13.2 % (2.0-12.0); NEUTROPHILS # (AUTO) 4.2 K/uL (1.8-8.9); NEUTROPHILS % (AUTO) 69.4 % (43.0-81.0); PLATELET COUNT (AUTO) 145 K/uL (150-450); RED BLOOD CELL COUNT(AUTO) 3.23 MIL/uL (4.0-5.2)
[2022-05-05 07:05] LABS: CALCIUM, SERUM 8.9 mg/dL (8.5-10.1); CARBON DIOXIDE 30 mmol/L (21-32); CHLORIDE 107 mmol/L (98-107); CREATININE 2.7 mg/dL (0.6-1.3); GLUCOSE 164 mg/dL (74-106); MAGNESIUM 2.1 mg/dL (1.8-2.4); PHOSPHORUS 3.2 mg/dL (2.5-4.9); POTASSIUM 3.7 mmol/L (3.5-5.1); SODIUM SERUM 145 mmol/L (136-145); UREA NITROGEN, BLOOD 29 mg/dL (7-18)
[2022-05-05 08:00] VITALS: BP 102/53
[2022-05-05] MEDS: BLOOD SUGAR DIAGNOSTIC 1 EACH STRIP VI SCH ×2 (08:00→12:59)
[2022-05-05] MEDS: GLUCERNA SHAKE 237 ML CAN PO SCH (08:36)
[2022-05-05 09:00] VITALS: BP 102/53
[2022-05-05] MEDS: METOPROLOL SUCCINATE 50 MG TAB.SR.24H PO SCH (09:00)
[2022-05-05] MEDS: PAROXETINE HCL 10 MG TABLET PO SCH (09:05)
[2022-05-05] MEDS: DOCUSATE SODIUM LIQ 100 MG/10 ML UDC PO SCH (09:05)
[2022-05-05] MEDS: PREGABALIN 25 MG CAPSULE PO SCH (09:05)
[2022-05-05] MEDS: PANTOPRAZOLE 40 MG TABLET.DR PO SCH (09:05)
[2022-05-05] MEDS: POLYETHYLENE GLYCOL 3350 17 GM POWD.PACK PO SCH (09:05)
[2022-05-05] MEDS: BRIMONIDINE TARTRATE OPHT SOLN 5 ML BOTTLE EACHEYE SCH (09:06)
[2022-05-05] MEDS: Z GUARD REMEDY 4 OZ OINT TP SCH (09:06)
[2022-05-05] MEDS: CLOTRIMAZOLE 1% 15 GM TUBE TP SCH (09:06)
[2022-05-05] MEDS: HEPARIN SODIUM, PORCINE 5000 UNITS/1 ML VIAL SQ SCH (09:18)
[2022-05-05] MEDS ORDERED: CEPH250C PO (11:24)
[2022-05-05] MEDS ORDERED: HEPA50008 SQ (11:24)
[2022-05-05 11:41] LABS: EOSINOPHILS % (MANUAL) 1 % (0-4); LYMPHOCYTES % (MANUAL) 17 % (16-48); MONOCYTES % (MANUAL) 6 % (0-11.0); NEUTROPHILS % (MANUAL) 76 (42-76)
--- NOTE | 2022-05-05 12:30 | NUR ---
RN NOTE PATIENT WITH [facility] H[facility] FRACTURE [facility]. REPORT WAS GIVEN TO [facility] IN [facility] AT 1230. PATIENT'S VITALS WERE WITHIN NORMAL. PATIET EFT WITH RAC #20 INTACT AND FLUSHING AND CHAIREZ CATHETER.
== END 2022-05-05 14:28 | disposition short-term general hospital (02) | DRG 535 ==
LOC: ER 18:18 → MED 21:57 → ICU 05-02 13:41 → TELE1 05-04 09:46
PROVIDERS: ADMIT Internal Medicine; ATTEND Nurse Practitioner Acute Care
PROC: 5A09357 Assistance with Respiratory Ventilation, Less than 24 Consecutive Hours, Continuous Positive Airway Pressure (ICD-10-PCS; principal; 2022-05-04)
DX: S72.142A Displaced intertrochanteric fracture of left femur, initial encounter for closed fracture (principal); I50.33 Acute on chronic diastolic (congestive) heart failure; J96.21 Acute and chronic respiratory failure with hypoxia; N17.0 Acute kidney failure with tubular necrosis; J96.22 Acute and chronic respiratory failure with hypercapnia; E44.1 Mild protein-calorie malnutrition; N39.0 Urinary tract infection, site not specified; I13.0 Hypertensive heart and chronic kidney disease with heart failure and stage 1 through stage 4 chronic kidney disease, or unspecified chronic kidney disease; D62 Acute posthemorrhagic anemia; E66.2 Morbid (severe) obesity with alveolar hypoventilation; E87.29 Other acidosis; Z16.12 Extended spectrum beta lactamase (ESBL) resistance; D64.9 Anemia, unspecified; E86.0 Dehydration; D46.9 Myelodysplastic syndrome, unspecified; D69.6 Thrombocytopenia, unspecified; E88.09 Other disorders of plasma-protein metabolism, not elsewhere classified; G47.33 Obstructive sleep apnea (adult) (pediatric); M06.9 Rheumatoid arthritis, unspecified; M79.7 Fibromyalgia; N18.9 Chronic kidney disease, unspecified; F32.A Depression, unspecified; E11.40 Type 2 diabetes mellitus with diabetic neuropathy, unspecified; E11.22 Type 2 diabetes mellitus with diabetic chronic kidney disease; Z86.73 Personal history of transient ischemic attack (TIA), and cerebral infarction without residual deficits; Z79.4 Long term (current) use of insulin; I35.2 Nonrheumatic aortic (valve) stenosis with insufficiency; B96.1 Klebsiella pneumoniae [K. pneumoniae] as the cause of diseases classified elsewhere; Z92.21 Personal history of antineoplastic chemotherapy; W19.XXXA Unspecified fall, initial encounter; Y93.9 Activity, unspecified; Y92.129 Unspecified place in nursing home as the place of occurrence of the external cause
CPT/HCPCS: 36415; 36600; 71045-TC; 73030-TC; 73060-TC; 73502; 73552; 80048-TC; 80053-TC; 80076-TC; 81001; 82803-TC; 82962-TC; 83605-TC; 83735-TC; 83880; 84100-TC; 84484-TC; 85025-TC; 85730-TC; 87040-TC; 87081-TC; 87086-TC; 87186-TC; 94762-TC; 94799-TC; A4216; C9803; G0378; J0696; J1644; J1815; J1885; J2270; J2405; J7030; J7050; P9047